=== PATIENT | male | born 1945 | race Caucasian/White ===

== ENCOUNTER 2019-04-16 01:18 | Emergency (ER) | payer OTHER ==
[~2019-04-16] VITALS: Ht 185.4 cm; Wt 74.8 kg
[2019-04-16 01:18] VITALS: BP 141/78
--- NOTE | 2019-04-16 01:28 | NUR ---
73 Y/O MALE BIBA FROM [facility]. PT PRESENTS TO ED, C/O COUGHING X1 MONTH. PT STATES COUGH IS WORSENING TODAY. STATES HAVING DIFFICULTY BREATHING, NO SOB NOTED. LUNG SOUNDS DIMINISHED ON BILAT BASES. SPO2 AT 94% ROOM AIR. PT C/O CHEST PAIN WHEN COUGHING. PT DENIES ANY N/V/D. PT UNABLE TO AMBULATE DUE TO GENERALIZED WEAKNESS. PT VSS. ERMD AWARE. WILL CONTINUE TO MONITOR.
--- NOTE | 2019-04-16 01:50 | NUR ---
NASAL FLU SWAB COLLECTED AND SENT TO LAB AT THIS TIME
--- NOTE | 2019-04-16 01:55 | NUR ---
XRAY AT BEDSIDE
--- NOTE | 2019-04-16 03:01 | NUR ---
BLOOD DRAWN AND SENT TO LAB AT THIS TIME
[2019-04-16 03:07] LABS: BASOPHILS % (AUTO) 0.5 % (0.0-2.0); EOSINOPHILS % (AUTO) 0.7 % (0.0-4.0); HEMATOCRIT 36.3 % (36-52); HEMOGLOBIN 12.2 g/dL (12.0-18.0); LYMPHOCYTES # (AUTO) 1.1 K/uL (2.0-11.5); LYMPHOCYTES % (AUTO) 16.5 % (20.5-51.1); MEAN CORPUSCULAR HEMOGLOBIN 31 pg (27-31); MEAN CORPUSCULAR HGB CONC 34 g/dL (33-37); MEAN CORPUSCULAR VOLUME 93.8 fL (80-94); MONOCYTES # (AUTO) 0.6 K/uL (0.8-1.0); MONOCYTES % (AUTO) 8.7 % (1.7-9.3); NEUTROPHILS # (AUTO) 5.1 K/uL (1.8-7.7); NEUTROPHILS % (AUTO) 73.6 % (42.2-75.2); PLATELET COUNT (AUTO) 190 K/uL (140-450); RED BLOOD CELL COUNT(AUTO) 3.88 MIL/uL (4.20-6.10); WHITE BLOOD COUNT (AUTO) 6.9 K/uL (4.8-10.8)
[2019-04-16 03:25] LABS: ANION GAP 13.1 (8-16); CARBON DIOXIDE 27.2 mmol/L (21-32); CHLORIDE 95 mmol/L (98-107); CREATININE 0.6 mg/dL (0.7-1.3); GLUCOSE 95 mg/dL (74-106); POTASSIUM 4.3 mmol/L (3.5-5.1); SODIUM SERUM 131 mmol/L (136-145); UREA NITROGEN, BLOOD 10 mg/dL (7-18)
[2019-04-16 03:30] LABS: ALBUMIN 2.6 g/dL (3.4-5.0); ASPARTATE AMINOTRANSFERASE 41 U/L (15-37); TOTAL BILIRUBIN 0.5 mg/dL (0.0-1.0)
--- NOTE | 2019-04-16 04:42 | NUR ---
Spoke with marlene valencia to give report and inform them that we would be transferring patient back to their care.
--- NOTE | 2019-04-16 06:38 | NUR ---
PT AWAKE LAYING ON BED. PT VSS. UPDATED PT REGARDING ETA FOR PICKUP. WILL CONTINUE TO MONITOR.
--- NOTE | 2019-04-16 06:49 | NUR ---
[facility] PICK[facility] ETA IS AT 1400
--- NOTE | 2019-04-16 07:23 | NUR ---
PT RESTING COMFORTABLY, GAVE PATIENT JUICE, WILL ORDER FOOD TRAY. PT USING BEDSIDE URINAL WITHOUT DIFFICULTY.
--- NOTE | 2019-04-16 07:23 | NUR ---
REPORT RECEIVED FROM HARSHAL BARRIOS FOR CHANGE OF SHIFT.
--- NOTE | 2019-04-16 07:30 | NUR ---
OFFERED TO ORDER FOOD TRAY FOR PT, PT REFUSED, CRACKERS AND JUICE ONLY.
--- NOTE | 2019-04-16 08:18 | NUR ---
PT HAD BOWEL MOVEMENT, CHANGED AND CLEANED PT OF BROWN, SOLID STOOL. PT REPOSITIONED FOR COMFORT.
--- NOTE | 2019-04-16 08:45 | NUR ---
PT GIVEN MORNING FOOD TRAY, REPOSTIONED IN BED, EATING WITHOUT DIFFICULTY.
[2019-04-16] MEDS ORDERED: IBUPROFEN 800 MG TAB PO ONE (10:45)
--- NOTE | 2019-04-16 10:45 | NUR ---
PT STATES PAIN 6/10 WITH LEFT HIP. MD ADVISED, GAVE MOTRIN PO FOR PAIN. PT REPOSITIONED FOR COMFORT. RESTING COMFORTABLY
[2019-04-16] MEDS ORDERED: MORPHINE SULFATE 2 MG/ML SYR IM ONE ×2 (13:10→13:45)
[2019-04-16 14:21] VITALS: BP 148/80
--- NOTE | 2019-04-16 14:22 | NUR ---
Patient discharged with v/s stable. Written and verbal after care instructions given and explained. Patient verbalized understanding. Amb[facility] with to [facility]. All questions addressed prior to discharge. Advised to follow up with PMD.
== END 2019-04-16 14:22 | disposition home or self-care (01) ==
LOC: MED 01:18
DX: R05 Cough (principal); R06.00 Dyspnea, unspecified
CPT/HCPCS: 36415; 71045; 80053; 83880; 84484; 85025; 85610; 85730; 87804; 93005; 96372; 99284; J2270; Q0092

== ENCOUNTER 2019-05-02 14:57 | Inpatient (IN) | payer OTHER ==
[~2019-05-02] VITALS: Ht 182.9 cm; Wt 65.8 kg
--- NOTE | 2019-05-02 14:57 | NUR ---
Patient BIBA BLS, transferred to bed 1. RN evaluating patient at bedside.
[2019-05-02 15:01] VITALS: BP 112/66
[2019-05-02] MEDS ORDERED: CALC-1030 PO (15:17)
[2019-05-02] MEDS ORDERED: ACET-5636 PO (15:17)
[2019-05-02] MEDS ORDERED: MAGN400S60 PO (15:17)
[2019-05-02] MEDS ORDERED: FERR325E14 PO (15:17)
[2019-05-02] MEDS ORDERED: ACAM333T PO (15:17)
[2019-05-02] MEDS ORDERED: TRAZ-343 PO (15:17)
[2019-05-02] MEDS ORDERED: DULO30EC PO (15:17)
[2019-05-02] MEDS ORDERED: TAMS0.4C96 PO (15:17)
[2019-05-02] MEDS ORDERED: GABA400C PO (15:17)
[2019-05-02] MEDS ORDERED: BACL10TA4 PO (15:17)
[2019-05-02] MEDS ORDERED: MSCON30 PO (15:18)
[2019-05-02 15:32] LABS: BASOPHILS % (AUTO) 0.5 % (0.0-2.0); EOSINOPHILS % (AUTO) 0.3 % (0.0-4.0); HEMATOCRIT 38.1 % (36-52); HEMOGLOBIN 12.4 g/dL (12.0-18.0); LYMPHOCYTES # (AUTO) 1.4 K/uL (2.0-11.5); LYMPHOCYTES % (AUTO) 25.7 % (20.5-51.1); MEAN CORPUSCULAR HEMOGLOBIN 31 pg (27-31); MEAN CORPUSCULAR HGB CONC 33 g/dL (33-37); MEAN CORPUSCULAR VOLUME 96.2 fL (80-94); MONOCYTES # (AUTO) 0.4 K/uL (0.8-1.0); MONOCYTES % (AUTO) 8.1 % (1.7-9.3); NEUTROPHILS # (AUTO) 3.5 K/uL (1.8-7.7); NEUTROPHILS % (AUTO) 65.4 % (42.2-75.2); PLATELET COUNT (AUTO) 149 K/uL (140-450); RED BLOOD CELL COUNT(AUTO) 3.96 MIL/uL (4.20-6.10); RED CELL DISTRIBUTION WIDTH 14.2 % (11.6-13.7); WHITE BLOOD COUNT (AUTO) 5.3 K/uL (4.8-10.8)
--- NOTE | 2019-05-02 15:45 | NUR ---
73YO M BIBA FROM REPLACED BY [facility] C/O BILATERAL LEG SWELLING X FEW DAYS. PT ALSO COMPLAINS OF 10/10 L HIP PAIN. PT IS AAOX4. SLIGHTLY TACHYCARDIC AT 104 BPM, REGULAR RHYTHM. PT PUT ON NC 2LPM, 02 SAT 100%. NO NOTED RESPIRATORY DISTRESS. PT WITH NOTED PITTING EDEMA UP TO HIS KNEES. PATIENT POSITIONED FOR COMFORT; HOB ELEVATED; BEDRAILS UP X2; BED DOWN. ER MD MADE AWARE OF PT STATUS. PMH: left femur fracture, htn, seizure, arthritis, depression, alcohol abuse, bph
[2019-05-02] MEDS ORDERED: cefTRIAXone 1,000 MG in DEXT 5% MINI-BAG PLUS 50 ML IV ONE (15:55)
[2019-05-02 16:06] LABS: ALBUMIN 2.7 g/dL (3.4-5.0); ANION GAP 12.4 (8-16); ASPARTATE AMINOTRANSFERASE 31 U/L (15-37); CARBON DIOXIDE 28.7 mmol/L (21-32); CHLORIDE 102 mmol/L (98-107); CREATININE 0.7 mg/dL (0.6-1.3); GLUCOSE 110 mg/dL (74-106); POTASSIUM 4.1 mmol/L (3.5-5.1); SODIUM SERUM 139 mmol/L (136-145); TOTAL BILIRUBIN 0.4 mg/dL (0.0-1.0); UREA NITROGEN, BLOOD 22 mg/dL (7-18)
[2019-05-02] MEDS ORDERED: cefTRIAXone 1,000 MG VIAL ONE (16:13)
[2019-05-02] MEDS ORDERED: MORPHINE SULFATE 4 MG/ML SYR IVP ONE (17:05)
[2019-05-02] MEDS ORDERED: DOCUSATE SODIUM 100 MG GELCAP PO PRN (17:15)
[2019-05-02] MEDS ORDERED: ACETAMINOPHEN 325 MG TAB PO PRN (17:15)
[2019-05-02] MEDS ORDERED: HYDROcodone/APAP 5/325 MG 1 TAB TAB PO PRN (17:15)
[2019-05-02] MEDS ORDERED: ONDANSETRON 4 MG/2 ML VIAL IM/IVP PRN (17:15)
--- NOTE | 2019-05-02 18:37 | NUR ---
Patient will be admitted to care of DR. MONZON. Admited to TELE. Will go to room 128B. Belongings list completed. Report to HARSHAL REYNOSO.
[2019-05-02 18:47] LABS: APPEARANCE,URINE CLEAR (CLEAR); BILIRUBIN,URINE 1+ (NEGATIVE); BLOOD, URINE NEGATIVE (NEGATIVE); COLOR,URINE YELLOW (YELLOW); LEUKOCYTE ESTERASE ,URINE TRACE (NEGATIVE); NITRITE, URINE POSITIVE (NEGATIVE); UGLUCOSE NEGATIVE (NEGATIVE)
--- NOTE | 2019-05-02 19:16 | NUR ---
RECEIVED BEDSIDE REPORT FROM CHARGE NURSE, RN FOR CONTINUITY OF CARE. AO X 3, FORGETFUL. PT WITH IV ON THE R AC G 20, PATENT AND INTACT. PT IS A FALL RISK, ON FALL RISK PRECAUTION. PLACED IN A LOW BED POSITION. CALL LIGHT WITHIN REACH. ORIENTED TO UNIT
[2019-05-02 19:20] LABS: MAGNESIUM 1.7 mg/dL (1.8-2.4); PHOSPHORUS 4.3 mg/dL (2.5-4.9); THYROID STIMULATING HORMONE 2.41 uIU/mL (0.34-3.74)
--- NOTE | 2019-05-02 19:30 | NUR ---
PT CLEANED AND PLACED IN FRESH GOWN; ACCDG TO ULTRASOUND FOR USD VENOUS BILATERAL, SHE WAS HERE EARLIER BUT PT STILL ON REGULAR CLOTHES, WILL COME BACK LATER
[2019-05-02 19:37] LABS: CALCIUM OXALATE CRYSTALS,UR 0-10 /HPF (None Seen); RBC,URINE 0-5 /HPF (0-5); WBC,URINE >25 (MANY) /HPF (0-5)
[2019-05-02 19:40] LABS: PROTHROMBIN TIME 9.9 secs (10.8-13.4)
[2019-05-02] MEDS: NACL 0.9% 1,000 ML IV SCH (19:49)
[2019-05-02 20:00] VITALS: BP 170/75
--- NOTE | 2019-05-02 20:00 | NUR ---
PT'S BP INCREASED, DR. OGDEN AWARE, WILL GIVE PAIN MEDS, PATIENT IS IN PAIN BILATERAL LEGS FOR CELLULITIS 01/06.
[2019-05-02] MEDS ORDERED: NON-FORMULARY ITEM (Oxycodone HCl/Acetaminophen (Percocet 10-325 mg Tablet) 1 TAB) PO PRN (20:35)
[2019-05-02] MEDS ORDERED: VANCOMYCIN PER PHARMACY MC PRN (20:40)
--- NOTE | 2019-05-02 21:23 | NUR ---
PHOTO TAKEN ON WOUNDS, INFORMED DR. OGDEN. VERBALLY ORDERED ME TO PUT IN THE ORDERS FOR WOUNDS CARRIED OUT WOUND ORDERS
[2019-05-02] MEDS: MORPHINE TAB ER 30 MG TABER PO SCH (21:53)
[2019-05-02] MEDS: BACLOFEN 10 MG TAB PO SCH (21:53)
[2019-05-02] MEDS: traZODone 50 MG TAB PO SCH (21:54)
[2019-05-02] MEDS: DULoxetine 30 MG CAPDR PO SCH (21:54)
[2019-05-02] MEDS: VANCOMYCIN 1,000 MG VIAL ONE ×2 (22:00→22:05)
[2019-05-02] MEDS ORDERED: VANCOMYCIN 1GM/DEXT 5% PREMIX 200 ML IV SCH (22:00)
--- NOTE | 2019-05-02 22:06 | NUR ---
VANCOCIN 1 GRAM STARTED MIXED W/ D5 50 ML AT 135 ML/HR. BAR CODE FOR THE VANCOMYCIN 1 GRAM D5 50 ML IS NOT WORKING.SO 1ST DOSE VANCOCIN 1000 MG I OVERIDE IT BETZAIDA MIXED IT W/ D5 50 ML Addendum: 05/02/19 at 2209 by Lavinia Higgins RN HARSHAL JASSO VERIFIED W/ ME
--- NOTE | 2019-05-02 23:22 | NUR ---
BP DECREASED NOW AFTER ADMINISTERING TO 103/54; HR 97. DR. OGDEN AWARE.
[2019-05-03] VITALS: BP 103/54
--- NOTE | 2019-05-03 | NUR ---
PT SLEEPING SOUNDLY NOW, BUT CAN BE AWAKENED BY VERBAL STIMULI Addendum: 05/04/19 at 0611 by Lavinia Higgins RN LEIGH ANN EUCEDA
--- NOTE | 2019-05-03 00:07 | NUR ---
INFORMED DYLON THAT PT NEEDS A USD VENOUS BILATERAL, AWARE. SGHE SAID SHE WILL COME AT 6:30AM
--- NOTE | 2019-05-03 02:37 | NUR ---
[facility] THOM[facility] SHAPER HAND OF [facility], SAID THAT THEY DONT HAVE RECORD, NEED TO CALL FAMILY BUT FAMILY HAS NO FAMILY. ONLY FRIEND ROMERO SWEET-[phone]
--- NOTE | 2019-05-03 02:46 | NUR ---
SCD DEVICE CANNOT BE ATTACHED DUE TO BILATERAL LE CELLULITIS W/ OPEN WOUNDS. DR. OGDEN AWARE
[2019-05-03] MEDS: NACL 0.9% 1,000 ML IV SCH ×3 (03:48→23:00)
[2019-05-03] MEDS ORDERED: HYDRAGUARD CREAM TP ONE (04:14)
[2019-05-03 06:00] VITALS: BP 112/66
[2019-05-03 06:07] LABS: BASOPHILS % (AUTO) 0.2 % (0.0-2.0); EOSINOPHILS % (AUTO) 0.2 % (0.0-4.0); HEMATOCRIT 32.1 % (36-52); HEMOGLOBIN 10.6 g/dL (12.0-18.0); LYMPHOCYTES # (AUTO) 1.1 K/uL (2.0-11.5); LYMPHOCYTES % (AUTO) 21.1 % (20.5-51.1); MEAN CORPUSCULAR HEMOGLOBIN 32 pg (27-31); MEAN CORPUSCULAR HGB CONC 33 g/dL (33-37); MEAN CORPUSCULAR VOLUME 95.9 fL (80-94); MONOCYTES # (AUTO) 0.5 K/uL (0.8-1.0); MONOCYTES % (AUTO) 8.7 % (1.7-9.3); NEUTROPHILS # (AUTO) 3.6 K/uL (1.8-7.7); NEUTROPHILS % (AUTO) 69.8 % (42.2-75.2); PLATELET COUNT (AUTO) 114 K/uL (140-450); RED BLOOD CELL COUNT(AUTO) 3.35 MIL/uL (4.20-6.10); RED CELL DISTRIBUTION WIDTH 14.5 % (11.6-13.7); WHITE BLOOD COUNT (AUTO) 5.2 K/uL (4.8-10.8)
[2019-05-03 06:17] LABS: ANION GAP 9.4 (8-16); CARBON DIOXIDE 32.4 mmol/L (21-32); CHLORIDE 107 mmol/L (98-107); CREATININE 0.6 mg/dL (0.6-1.3); GLUCOSE 101 mg/dL (74-106); POTASSIUM 3.8 mmol/L (3.5-5.1); SODIUM SERUM 145 mmol/L (136-145); UREA NITROGEN, BLOOD 15 mg/dL (7-18)
[2019-05-03 06:22] LABS: MAGNESIUM 1.6 mg/dL (1.8-2.4); PHOSPHORUS 3.5 mg/dL (2.5-4.9)
[2019-05-03 06:24] LABS: CHOL/HDL RATIO 1.8 (1-4.5)
[2019-05-03] MEDS ORDERED: PIPERACILLIN/TAZOBACTAM 3.375 GM in DEXTROSE 5% 50 ML IV SCH (07:00)
[2019-05-03] MEDS ORDERED: PIPERACILLIN/TAZOBACTAM 3.375 GM VIAL IV ONE (07:01)
--- NOTE | 2019-05-03 07:20 | NUR ---
RECEIVED REPORT FROM MILK ROUTE DELIVERER NURSE. PATIENT LYING DOWN IN BED SLEEPING, AROUSABLE BY VOICE. NO DISTRESS NOTED. DENIES ANY PAIN. AAOX3, CALM, COOPERATIVE, SKIN COLOR APPROPRIATE TO ETHNICITY, WARM TO TOUCH. HAS RIGHT PERINEUM AND SCROTAL REDNESS/DENUDED SKIN, RIGHT ANTERIOR LEG OPEN WOUND, DRESSING DRY AND INTACT. AND MULTIPLE BUE CLOSED SCABS FROM SCRATCHING SELF. IV SITE INTACT, PATENT, AND INFUSING IVF PER MD ORDERS. REVIEWED PLAN OF CARE WITH PATIENT. PATIENT VERBALIZED UNDERSTANDING. SAFETY MEASURES IN PLACE, CALL LIGHT WITHIN REACH. WILL CONTINUE TO MONITOR.
--- NOTE | 2019-05-03 07:40 | NUR ---
ASKED DR. Chino BENTLEY IF WE SHOULD COLLECT THE WOUND CULTURE WHEN WE HAVE STARTED ALREADY THE ANTIBIOTIC SINCE ADMISSION; E.G. ROCEPHIN DURING ADMISSION; VANCOMYCIN THEN ZOSYN IN THE LATRICE. THE ORDER WAS PLACED AT 0400AM BY DR. OGDEN.
--- NOTE | 2019-05-03 07:41 | NUR ---
TO FOLLOW UP THE WOUND CULTURE ORDER W/ DR. Chino BENTLEY. ENDORSED TO NEXT SHIFT FOR CONTINUITY OF CARE.
--- NOTE | 2019-05-03 07:55 | NUR ---
TO FOLLOW UP ALSO USD OF THE BILATERAL LE, VENOUS.
[2019-05-03 08:00] VITALS: BP 97/66
--- NOTE | 2019-05-03 08:57 | NUR ---
PATIENT HAS BEEN SCREENED AND CATEGORIZED HIGH NUTRITION RISK. PATIENT WILL BE SEEN WITHIN 1-2 DAYS OF ADMISSION. 2.4.[address]
[2019-05-03] MEDS: NICOTINE TRANSD SYS 14 MG/24 HR PATCH TD SCH ×2 (09:00→09:56)
--- NOTE | 2019-05-03 09:28 | NUR ---
Transformer Builder Note: Basic Screen: Yes Name: ROMERO Lozano Relationship: FRIEND Pre-Admission Living Arrangements: Other Other: [facility] Prior ADL Needs Assistance Current Home Health Name/Tel: N/A Current DME/02 Name/Tel: [facility] Current Hospice Name/Tel: N/A Current Dialysis Name/Tel: N/A Healthcare Decision Maker: Patient Advance Directive No Physician Orders for Life Sustaining Treatment Form No Discipline: Case Mgt/Social Svcs Tentative Discharge Plan/Destination: Other Other: [facility] Will require assistance post discharge: No Referred to Public Defender: No Tentative Discharge Plan Summary: Patient is a 73-year-old male admitted for PNA and bilateral cellulitis. Patient has PMHX of COPD, chronic pain of left hip, seizure disorder, depression, BPH, and tobacco use disorder. Patient was admitted from [facility]. SW contacted Natalia from [facility] [phone]. Per Natalia, patient is self-responsible for healthcare decision making and is alert/oriented at baseline. Natalia reported that patient needs assistance showering, medication, dressing, grooming, toileting, and laundry. Natalia stated that patient is non ambulatory. Tentative discharge plan is for patient to return to [facility]. No further needs identified.
[2019-05-03] MEDS: TAMSULOSIN 0.4 MG CAP PO SCH (09:55)
[2019-05-03] MEDS: BACLOFEN 10 MG TAB PO SCH ×2 (09:56→21:15)
[2019-05-03] MEDS: GABAPENTIN 300 MG CAP PO SCH ×3 (09:56→18:20)
[2019-05-03] MEDS: MORPHINE TAB ER 30 MG TABER PO SCH ×2 (09:56→21:15)
[2019-05-03] MEDS: DULoxetine 30 MG CAPDR PO SCH ×2 (09:56→21:14)
[2019-05-03] MEDS: LACTOBACILLUS RHAMNOSUS GG 1 EACH CAP PO SCH (09:56)
--- NOTE | 2019-05-03 10:09 | NUR ---
PATIENT SITTING IN BED WORKING ON HIS BREAKFAST TRAY. NO DISTRESS NOTED. PAIN WITHIN TOLERABLE. SCHEDULED MEDICATIONS DUE GIVEN. REFUSED NICOTINE PATCH. WILL CONTINUE TO MONITOR.
--- NOTE | 2019-05-03 10:56 | NUR ---
DISCHARGE PLANNING: A 73 Y/O MALE PATIENT FROM [facility], WHO CAME IN DUE TO CELLULITIS X 1 WEEK. PAST MEDICAL HISTORY INCLUDE COPD, CHRONIC PAIN OF LEFT HIP, SEIZURE DISORDER, DEPRESSION, BPH AND TOBACCO ABUSE. INITIAL DIAGNOSIS OF PNA AND BLE CELLULITIS. CURRENT LABS INCLUDE WBC 5.2, H/H 10.6/32.1, NA/K 145/3.8, BUN/CREA 15/0.6 AND MAG 1.6. ON [facility]. NO CONSULTS AT THIS TIME. DC PLAN BACK TO [facility] ONCE STABLE. Addendum: 05/03/19 at 1202 by Ingrid Mccollum CM CONTACTED GUDELIA COLE AT [facility] AND MADE AWARE OF ADMISSION. SHE STATED TO GO AHEAD AND FAX OVER FACE SHEET TO [phone]. FACE SHEET SENT. Addendum: 05/04/19 at 1030 by Ingrid Mccollum CM RECEIVED AN ORDER FOR SNF EVALUATION FOR CONTINUED ANTIBIOTICS THERAPY. CONTACTED GUDELIA COLE OF [facility] AT [phone] REGARDING DC PLAN. I INFORMED HER THAT I FAXED THE ORDER AND CLINICALS TO [phone]. AND I ALSO INFORMED HER THAT I SENT INQUIRIES TO CONTRACTED SNF'S [facility] AND [facility]. SHE STATED JUST TO CALL HER UP IF I HAVE AN ACCEPTING FACILITY SO SHE CAN PROVIDE TRANSPORT AND SNF AUTH. GUDELIA TO FOLLOW UP. Addendum: 05/04/19 at 1527 by Ingrid Mccollum CM PER [facility], NO MALE BEDS AVAILABLE AT THIS TIME. Addendum: 05/04/19 at 1623 by Ingrid Mccollum CM IMM AND CHOICE LETTERS PROVIDED TO THE PATIENT. HE SAID TO GIVE HIM TIME TO READ BEFORE SIGNING IT. LEFT THE FORM WITH HIM. WILL FOLLOW UP. Addendum: 05/05/19 at 1458 by Ingrid Mccollum PER [facility], THEY ARE ABLE TO ACCEPT THE PATIENT IF READY TO BE DC. DR. SLOAN MADE AWARE. Addendum: 05/05/19 at 1548 by Ingrid Mccollum CM CONTACTED GUDELIA CARLSON AT [phone] TO INFORM HER THAT [facility] IS ABLE TO ACCEPT THE PATIENT. NO ANSWER, VOICE PROMPT STATED NO VOICEMAIL SET. WILL FOLLOW UP. Addendum: 05/06/19 at 1545 by Ingrid Mccollum CM CONTACTED GUDELIA COLE AT [phone], INFORMED HER THAT [facility] IS ABLE TO ACCEPT THE PATIENT. SHE PROVIDED ME WITH SNF AND TRANSPORT AUTH [id number]. PROVIDED THE AUTH TO CHEVY OF [facility]. PER CHEVY PATIENT CAN GO TO ROOM [facility] UNDER DR. ABREU. DR. BELLO MADE AWARE. WILL CALL TRANSPORT SET UP WITH TIFFANIE OF [facility] [phone]. DR. SLOAN AND CHARGE NURSE ALESSIA MADE AWARE. Addendum: 05/07/19 at 1115 by Halie Menjivar DC PLANNING: CALLED [facility] SPOKE WITH ESTRELLA CAPUTO ACCEPTED PT, CAN GO TO ROOM [facility] # TO GIVE REPORT [phone] ARRANGED TRANSPORT WITH [facility] QUALITY ASSURANCE AUDITOR TIME BETWEEN 5-6 PM NOTIFIED PIPER CAPUTO. Addendum: 05/07/19 at 1610 by Halie Menjivar CM DC PLANNING IM LETTER GIVEN TO PATIENT UNABLE TO SIGNED DUE TO TREMORS ON HANDS NO FAMILY TO DISCUSS THE IM LETTER HOWEVER PT IS ALERT AND ORIENTED X 3 EXPLAINED THE MEDICARE RIGHTS AND CHOICE OF VENDOR AND PT IS AGREED TO GO TO [facility] FOR IV ANTIBIOTICS . CALLED CORNELIUS HASTINGS SPOKE WITH BEN NOTIFIED HER THAT PT IS GOING TO [facility] FOR IV ABX. Addendum: 05/08/19 at 1523 by Halie Menjivar CM DC PLANNING CALLED [facility] SPOKE WITH [facility] STATED THEY ARE ASKING THE PATIENT TO HAVE A BRIZUELA CATH TO BE INSERTED TO BE ABLE TO PLACE HIM WITH SOMEONE ELSE BUT DIDN'T GIVE THE ORDER . I EXPLAINED THE WE CAN NOT INSERT BRIZUELA CATH FOR CONVENIENCE THERE IS A STANDARD TO PUT BRIZUELA. PER OCTAVIA THEY DON'T HAVE ANY ISO BED AND TO LOOK FOR ANOTHER SNF. FAXED TO MOST OF THE CONTRACTED FACILITY [facility], [facility] , [facility] , SPOKE WITH DENI AT [facility] AND [facility] THEY ARE REVIEWING THE CASE AND WILL CALL BACK Addendum: 05/08/19 at 1601 by Halie Menjivar CM DC PLANNING: PER DR CHIU PT NEEDS TO BE IN ISOLATION AND THE IV ABX IS FOR ONE WEEK. JOSE FROM [facility] VISITED PATIENT WILL ACCEPT PATIENT BUT THERE IS NO ISO BED AND WILL CALL BACK WHEN BED AVAILABLE. SPOKE WITH DENI AT [facility] NO ISO BED CM TO FOLLOW Addendum: 05/09/19 at 1013 by Ingrid Mccollum CM SARAH CARLSON MAKING HER AWARE THAT THE PATIENT IS STILL HERE 2/2 ISOLATION AND [facility] DID NOT HAVE A BED DURING THE WEEKEND. I ALSO INFORMED HER THAT [facility] IS ABLE TO ACCEPT THE PATIENT. SHE STATED SHE WILL CALL ME BACK, SHE HAVE TO DISCUSS THE CASE WITH HER HELMET HAT BRIM CUTTER. GUDELIA WILL FOLLOW UP. Addendum: 05/09/19 at 1021 by Ingrid Mccollum CM RECEIVED A CALL FROM [facility] ADMISSIONS OF [facility] [phone], STATING THAT THEY ARE ABLE TO ACCEPT THE PATIENT PENDING AUTH. SHE PROVIDED ME WITH ROOM NUMBER [id number] UNDER DR. HOLDEN. GUDELIA WILL FOLLOW UP. Addendum: 05/09/19 at 1056 by Ingrid Mccollum CM RECEIVED A CALL FROM GUDELIA CARLSON REGARDING AUTH FOR SNF AND TRANSPORT. SHE STATED I CAN USE THE ONE SHE PROVIDED ME LAST THURSDAY. MARILUZ OF [facility] MADE AWARE. CONTACTED [facility] AT [phone], PER SAM QUALITY ASSURANCE AUDITOR WILL BE AT 1500. [facility], PRIMARY HARSHAL ESPARZA AND DR. SLOAN MADE AWARE. Addendum: 05/09/19 at 1100 by Ingrid Mccollum KALI BAILEY POULTICE MACHINE OPERATOR AT [facility] [phone] MADE AWARE. Addendum: 05/09/19 at 1316 by Halie Menjivar DC PLANNING: IM LETTER SIGNED BY THE PATIENT .PT ALERT AND ORIENTED X4 ABLE TO MAKE NEEDS KNOWN, AFTER READING AND DISCUSSING ALL THE CONCERNS AND ISSUES, SUCH GOING BACK TO [facility] THE ASSISTED LIVING, AND MEDICARE RIGHTS IF HE DOESN'T AGREE HE CAN APPEAL THE DISCHARGE, PT VERBALIZED UNDERSTANDING, AGREED TO GO TO [facility] FOR IV ANTIBIOTICS AND SIGNED THE IM LETTER.
[2019-05-03 12:00] VITALS: BP 111/66
[2019-05-03] MEDS ORDERED: MAG SULF 2000 MG/WATER PREMIX 50 ML IV SCH (12:00)
[2019-05-03] MEDS: VANCOMYCIN 1,000 MG in DEXTROSE 5% 250 ML IV SCH ×2 (12:14→22:54)
[2019-05-03] MEDS: MORPHINE SULFATE 2 MG/ML SYR IVP PRN ×2 (12:35→19:01)
--- NOTE | 2019-05-03 12:40 | NUR ---
PATIENT SITTING IN BED WITH COMPLAINTS OF PAIN ON LOWER EXTREMITIES, MORPHINE GIVEN AT THIS TIME. OTHER SCHEDULED MEDICATIONS DUE GIVEN. WILL CONTINUE TO MONITOR.
[2019-05-03] MEDS: Z-GUARD PASTE TP SCH (13:06)
[2019-05-03] MEDS: HYDRAGUARD CREAM TP SCH (13:06)
[2019-05-03] MEDS ORDERED: FUROSEMIDE 40 MG/4 ML VIAL IVP SCH (14:00)
[2019-05-03] MEDS: PIPERACILLIN/TAZOBACTAM 3.375 GM in DEXTROSE 5% 50 ML IV SCH ×2 (14:36→21:14)
--- NOTE | 2019-05-03 15:00 | NUR ---
ASSISTED PATIENT IN REPOSITIONING. WILL CONTINUE TO MONITOR.
[2019-05-03 16:00] VITALS: BP 111/65
--- NOTE | 2019-05-03 16:01 | NUR ---
05/03/19 RD INITIAL ASSESSMENT COMPLETED PLEASE REFER TO NUTRITION ASSESSMENT UNDER CARE ACTIVITY FOR ESTIMATED NUTRITIONAL NEEDS. 1. CONTINUE REGULAR, HIGH PROTEIN DIET TOLERATED 2. PT TO RECEIVE ADEQUATE KCALS/PROTEIN TO MEET INCREASED NEEDS. 3. RD TO FOLLOW-UP 2-3 DAYS, HIGH RISK REVIEWED BY KEIRA MACKAY RD
--- NOTE | 2019-05-03 17:52 | NUR ---
HARSHAL Miller reminded to follow up flu and PNA shot. He said okay.
--- NOTE | 2019-05-03 18:20 | NUR ---
PATIENT LYING DOWN IN BED SLEEPING, AROUSABLE BY VOICE. NO DISTRESS NOTED. DENIES ANY PAIN. SCHEDULED MEDICATIONS DUE GIVEN. WILL CONTINUE TO MONITOR.
--- NOTE | 2019-05-03 19:26 | NUR ---
GAVE REPORT TO STATION CLEANING PORTER NURSE FOR CONTINUITY OF CARE. PATIENT IN STABLE CONDITION.
--- NOTE | 2019-05-03 19:27 | NUR ---
RECEIVED REPORT FROM AM SHIFT HARSHAL SMITH. PT AO X 3, WITH PERIODS OF FORGETFULNESS, AMBULATORY. STILL PENDING POST LEG THIGH WOUND CULTURE, AND SPUTUM CULTURE. PT NOT COUGHING. NO RESPIRATORY DISTRESS. PLACED ON LOW BED, W/ DRESSINGS IN PLACE ON POST LEG LEFT, AND WITH WOUND TX ON WOUND AREAS. W/ IV ON THE RAC G 20 STILL INTACT WITH NS AT 100ML/HR. PLACED ON LOW BED. CALL LIGHT WITHIN REACH.
[2019-05-03 20:00] VITALS: BP 110/64
[2019-05-03] MEDS: traZODone 50 MG TAB PO SCH (21:14)
--- NOTE | 2019-05-03 21:57 | NUR ---
PT TURNED AND REPOSITIONED PATIENT
--- NOTE | 2019-05-03 23:45 | NUR ---
PT SLEEPING COMFORTABLY NO RESPIRATORY DISTRESS NO COMPLAINTS AT THIS TIME
[2019-05-04] VITALS: BP 133/80
--- NOTE | 2019-05-04 | NUR ---
PT SLEEPING SOUNDLY NOW, BUT CAN BE AWAKENED BY VERBAL STIMULI
--- NOTE | 2019-05-04 01:00 | NUR ---
PATIENT CLEANED AND TURNED; AND PATIENT WOUND CARE DONE; PT TOLERATED PROCEDURE
[2019-05-04] MEDS: HYDRAGUARD CREAM TP SCH ×2 (02:10→13:17)
[2019-05-04] MEDS: Z-GUARD PASTE TP SCH ×2 (02:11→13:18)
--- NOTE | 2019-05-04 02:30 | NUR ---
PT SLEEPING FOR NOW, CAN BE EASILY AROUSED, NO COMPLAINTS NO RESPIRATORY DISTRESS, FIXED HIS O2 NASAL CANNULA
[2019-05-04] MEDS: MORPHINE SULFATE 2 MG/ML SYR IVP PRN ×3 (04:07→20:42)
[2019-05-04] MEDS: PIPERACILLIN/TAZOBACTAM 3.375 GM in DEXTROSE 5% 50 ML IV SCH ×3 (04:09→20:44)
--- NOTE | 2019-05-04 04:10 | NUR ---
PT CLEANED AND TURNED HIM, PT WAS GIVEN PAIN MEDS BEFORE TURNING.
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
--- NOTE | 2019-05-04 05:15 | NUR ---
RAIN, LAB WAS IN THE ROOM. NO BLOOD DRAW WAS DONE YET. LAB EXPLAINED THE PROCEDURE. PT UNDERSTOOD THE RISKS AND BENEFITS AND ALLOWED A BLOOD DRAW
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
[2019-05-04 06:00] VITALS: BP 147/88
[2019-05-04 06:50] LABS: ANION GAP 10.5 (8-16); CARBON DIOXIDE 35.4 mmol/L (21-32); CHLORIDE 102 mmol/L (98-107); CREATININE 0.6 mg/dL (0.6-1.3); GLUCOSE 98 mg/dL (74-106); POTASSIUM 3.9 mmol/L (3.5-5.1); SODIUM SERUM 144 mmol/L (136-145); UREA NITROGEN, BLOOD 10 mg/dL (7-18)
[2019-05-04 06:54] LABS: MAGNESIUM 1.6 mg/dL (1.8-2.4); PHOSPHORUS 3.9 mg/dL (2.5-4.9)
--- NOTE | 2019-05-04 07:44 | NUR ---
RECEIVED REPORT FROM ACETONE BUTTON PASTER RN FOR CONTINUITY OF CARE. PT IS AAOX3, WITH PERIODS OF FORGETFULNESS, AND CONFUSION. PT IS NOT AMBULATORY WITH CONTRACTURE TO LEFT LEG. STILL PENDING POST LEG THIGH WOUND CULTURE, AND SPUTUM CULTURE. PT NOT COUGHING. PT ON 2L O3 VIA NC. NO RESPIRATORY DISTRESS NOTED. PT WITH DRESSINGS IN PLACE ON POSTERIOR LEFT THIGH AND ON OTHER WOUND AREAS. PT HAS IV ON THE R AC 20G PATENT AND INTACT WITH NS AT 60ML/HR. EXPLAINED POC TO PT AND PT VERBALIZED UNDERSTANDING BUT WAS A LITTLE DEFENSIVE. ALL SAFETY MEASURES IN PLACE. CALL LIGHT WITHIN REACH, BED IN LOW POSITION. WILL ROUND FREQUENTLY ON PT.
[2019-05-04] MEDS: GABAPENTIN 300 MG CAP PO SCH ×3 (08:39→17:00)
[2019-05-04] MEDS: LACTOBACILLUS RHAMNOSUS GG 1 EACH CAP PO SCH (08:39)
[2019-05-04] MEDS: BACLOFEN 10 MG TAB PO SCH ×2 (08:39→20:48)
[2019-05-04] MEDS: MORPHINE TAB ER 30 MG TABER PO SCH ×2 (08:40→21:00)
[2019-05-04] MEDS: DULoxetine 30 MG CAPDR PO SCH ×2 (08:40→20:48)
[2019-05-04] MEDS: TAMSULOSIN 0.4 MG CAP PO SCH (08:40)
[2019-05-04] MEDS: NICOTINE TRANSD SYS 14 MG/24 HR PATCH TD SCH (09:00)
[2019-05-04 09:03] LABS: BASOPHILS % (AUTO) 0.9 % (0.0-2.0); EOSINOPHILS % (AUTO) 0.3 % (0.0-4.0); HEMATOCRIT 35.2 % (36-52); HEMOGLOBIN 11.6 g/dL (12.0-18.0); LYMPHOCYTES # (AUTO) 0.9 K/uL (2.0-11.5); LYMPHOCYTES % (AUTO) 25.9 % (20.5-51.1); MEAN CORPUSCULAR HEMOGLOBIN 32 pg (27-31); MEAN CORPUSCULAR HGB CONC 33 g/dL (33-37); MONOCYTES # (AUTO) 0.2 K/uL (0.8-1.0); MONOCYTES % (AUTO) 7.2 % (1.7-9.3); NEUTROPHILS # (AUTO) 2.2 K/uL (1.8-7.7); NEUTROPHILS % (AUTO) 65.7 % (42.2-75.2); PLATELET COUNT (AUTO) 115 K/uL (140-450); RED BLOOD CELL COUNT(AUTO) 3.63 MIL/uL (4.20-6.10); RED CELL DISTRIBUTION WIDTH 14.2 % (11.6-13.7); WHITE BLOOD COUNT (AUTO) 3.4 K/uL (4.8-10.8)
--- NOTE | 2019-05-04 09:15 | NUR ---
ADMINISTERED MORNING MEDS TO PT. PT TOLERATED WELL. PT REFUSING HEPARIN AND NICOTINE PATCH. ALL OTHER NEEDS MET. WILL CONTINUE TO ROUND FREQUENTLY ON PT. BED IN LOW POSITION, CALL LIGHT WITHIN REACH.
[2019-05-04] MEDS ORDERED: MAG SULF 2000 MG/WATER PREMIX 100 ML IV SCH (10:00)
[2019-05-04 10:53] VITALS: BP 124/84
[2019-05-04] MEDS: MUPIROCIN CA NASAL 2% 1GM TUBE NS SCH (11:38)
[2019-05-04] MEDS: CHLORHEXADINE GLUC 2% CLOTH TP SCH (11:38)
--- NOTE | 2019-05-04 11:54 | NUR ---
PT SITTING UP IN BED EATING LUNCH. ALL NEEDS MET. WILL CONTINUE TO ROUND FREQUENTLY ON PT. BED IN LOW POSITION, CALL LIGHT WITHIN REACH.
[2019-05-04 12:00] VITALS: BP 101/65
[2019-05-04] MEDS: VANCOMYCIN 1,250 MG in DEXTROSE 5% 250 ML IV SCH ×2 (13:17→23:17)
--- NOTE | 2019-05-04 13:39 | NUR ---
PT RESTING IN BED. ALL NEEDS MET.
--- NOTE | 2019-05-04 14:55 | NUR ---
WOUND CARE EVALUATION NOTE: REASON FOR EVALUATION: MULTIPLE WOUNDS SKIN ASSESSMENT DONE WITH THIS 73 Y/O MALE PT ADMITTED FROM SNF TO [facility] WITH INITIAL DX OF BLE CELLULITIS PT IS AWAKE. SKIN IS WARM AND DRY, MULTIPLE SCABS. BLE NO HAIR GROWTH, LEFT HIP OLD HEALED SCAR, LEFT LE +1 EDEMA WITH LEFT FOOT DEFORMITY AND HEEL THIN CALLUS. BILATERAL DORSAL PEDAL PULSES PRESENT, THICKEN FUNGAL NAILS OBSERVED. PLAN OF CARE DISCUSSED WITH PRIMARY RN AND PT. PT. VERBALIZING UNDERSTANDING. 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 -LEFT LE +1 EDEMA WITH LEFT FOOT DEFORMITY AND HEEL THIN CALLUS. SKIN WITH ERYTHEMA, NORMAL TEMP. AND INTACT RECOMMENDATIONS: -APPLY HYDRA-GUARD TO UPPER EXTREMITIES, DORSAL FEEL TO TOES BID AND MATT -CLEANSE RIGHT LE WITH NS AND GAUZE, PAT DRY, PACK WITH XEROFORM DRESSING, AND WRAP WITH TETE 3XWK M-W-F AND PRN WITH SOILING. -CLEANSE SCROTAL AND PERINEUM AREAS WITH MILD SOAP AND WATER, PAT DRY, APPLY Z-GUARD QD AND PRN IF SOILING -CLEANSE LEFT MEDIAL THIGH WITH MILD SOAP AND WATER, RINSE WITH NS, PAT DRY, APPLY Z-GUARD AND COVER WITH ISLAND DRESSING QD AND PRN IF SOILING -OFFLOAD BILATERAL HEELS BY PLACING PILLOWS UNDER CALVES UNLESS OTHERWISE CONTRAINDICATED -PRESSURE REDISTRIBUTION SURFACE THERAPY -TURN AND REPOSITION Q2H, OFFLOAD SACRALCOCCYX BY TURNING RIGHT AND LEFT -CONTINUE TO FOLLOW RD RECOMMENDATIONS ALL ABOVE RECOMMENDATIONS DISCUSSED WITH PRIMARY RN WILL FOLLOW UP PT Q7-10 DAYS. PLEASE CONTACT WOUND CARE NURSE FOR ANY QUESTION AND CHANGE OF WOUND CONDITION.
--- NOTE | 2019-05-04 15:09 | NUR ---
WOUND CARE DONE WITH WOUND CARE NURSE DOMINGO. PT TOLERATED WELL. PT REQUESTING MORPHINE FOR 7/10 LEG PAIN. WILL MEDICATE PT.
[2019-05-04 16:00] VITALS: BP 112/63
--- NOTE | 2019-05-04 17:42 | NUR ---
PT RESTING EATING DINNER. ALL NEEDS MET.
--- NOTE | 2019-05-04 19:39 | NUR ---
ENDORSED PT TO SLUICE TENDER FOR CONTINUITY OF CARE. PT INS TABLE CONDITION AT THIS TIME.
--- NOTE | 2019-05-04 19:40 | NUR ---
RECEIVED BEDSIDE REPORT FROM DAY RN FOR CONTINUITY OF CARE. PT IS AAOX3, WITH PERIODS OF FORGETFULNESS, AND CONFUSION. PT IS NOT AMBULATORY WITH CONTRACTURE TO LEFT LEG. STILL PENDING POST LEG THIGH WOUND CULTURE, AND SPUTUM CULTURE. PT DENIES COUGH. PT ON 2L O2 VIA NC. NO RESPIRATORY DISTRESS NOTED. DECREASE LUNG SOUNDS. PT WITH DRESSINGS IN PLACE ON POSTERIOR LEFT THIGH AND R AQUINO WITH DELMER WRAP. PT HAS IV ON THE R AC 20G PATENT AND INTACT WITH NS AT 60ML/HR. URINAL WITHIN REACH. EXPLAINED POC TO PT AND PT VERBALIZED UNDERSTANDING. ON CONTACT ISOLATION FOR ACTIVE MRSA OF NARES. ALL SAFETY MEASURES IN PLACE. CALL LIGHT WITHIN REACH, BED IN LOW POSITION. WILL ROUND FREQUENTLY.
[2019-05-04 20:00] VITALS: BP 99/65
--- NOTE | 2019-05-04 20:44 | NUR ---
NGOC MEDICATIONS GIVEN. IV MORPHINE GIVEN FOR GEN 9/10 PAIN. PT TOLERATED WELL. CALL LIGHT IS WITHIN REACH.
[2019-05-04] MEDS: traZODone 50 MG TAB PO SCH (20:48)
--- NOTE | 2019-05-04 22:00 | NUR ---
PATIENT IS LAYING COMFORTABLY IN BED WATCHING TV. NO S/S OF DISTRESS. SAFETY MEASURES ARE IN PLACE. CALL LIGHT IS WITHIN REACH. WILL CONTINUE TO MONITOR.
[2019-05-04] MEDS: NACL 0.9% 1,000 ML IV SCH (23:17)
--- NOTE | 2019-05-04 23:17 | NUR ---
NEW IVF BAG STARTED. VANCO NOW INFUSING PER ORDERS. PT IS SLEEPING COMFORTABLY IN BED CHEST RISE AND FALL. NO S/S OF DISTRESS. CALL LIGHT IS WITHIN REACH.
[2019-05-05] VITALS: BP 145/95
--- NOTE | 2019-05-05 | NUR ---
VITAL SIGNS ARE STABLE. NO S/S OF DISTRESS. CALL LIGHT IS WITHIN REACH. WILL CONTINUE TO MONITOR.
[2019-05-05] MEDS: MORPHINE SULFATE 2 MG/ML SYR IVP PRN (00:57)
--- NOTE | 2019-05-05 00:57 | NUR ---
PT YELLING. WALKED TO ROOM PT WAS HOLDING HIS IV. IV CATH INTACT. R ARM AT OLD IV SITE NOTED WITH MINIMAL SWELLING. PT WAS AGITATED REGARDING HIS ARM, EDUCATED IV GOT INFILTRATED I WILL MONITOR THE SWELLING SHOULD GO DOWN. PT VERBALIZED UNDERSTANDING. ARM RAISED ON PILLOW. NEW IV STARTED ON ANNETTE 22G ON FIRST ATTEMPT. PT TOLERATED WELL. ADMINISTERED IV MORPHINE FOR LEG PAIN 12/07. CALL LIGHT IS WITHIN REACH. WILL CONTINUE TO MONITOR.
[2019-05-05] MEDS: HYDRAGUARD CREAM TP SCH ×2 (01:05→12:30)
[2019-05-05] MEDS: Z-GUARD PASTE TP SCH ×2 (01:05→12:30)
--- NOTE | 2019-05-05 02:14 | NUR ---
PATIENT IS RESTING COMFORTABLY IN BED. NO S/S OF DISTRESS. CALL LIGHT IS WITHIN REACH.
[2019-05-05 04:00] VITALS: BP 138/63
--- NOTE | 2019-05-05 04:00 | NUR ---
VITAL SIGNS ARE WITHIN NORMAL LIMITS. ALL SAFETY MEASURES ARE IN PLACE. CALL LIGHT IS WITHIN REACH. WILL CONTINUE TO MONITOR.
[2019-05-05] MEDS: PIPERACILLIN/TAZOBACTAM 3.375 GM in DEXTROSE 5% 50 ML IV SCH ×3 (04:49→20:11)
--- NOTE | 2019-05-05 06:53 | NUR ---
PT IS SLEEPING COMFORTABLY IN BED. CHEST RISE AND FALL NOTED. PT IS STABLE. CALL LIGHT IS WITHIN REACH. WILL ENDORSE TO DAY RN.
[2019-05-05 07:00] LABS: BASOPHILS % (AUTO) 0.2 % (0.0-2.0); EOSINOPHILS % (AUTO) 0.3 % (0.0-4.0); HEMOGLOBIN 11.8 g/dL (12.0-18.0); LYMPHOCYTES # (AUTO) 0.8 K/uL (2.0-11.5); LYMPHOCYTES % (AUTO) 26.1 % (20.5-51.1); MEAN CORPUSCULAR HEMOGLOBIN 31 pg (27-31); MEAN CORPUSCULAR HGB CONC 33 g/dL (33-37); MONOCYTES # (AUTO) 0.2 K/uL (0.8-1.0); MONOCYTES % (AUTO) 7.3 % (1.7-9.3); NEUTROPHILS % (AUTO) 66.1 % (42.2-75.2); PLATELET COUNT (AUTO) 112 K/uL (140-450); RED BLOOD CELL COUNT(AUTO) 3.75 MIL/uL (4.20-6.10); RED CELL DISTRIBUTION WIDTH 14.3 % (11.6-13.7); WHITE BLOOD COUNT (AUTO) 3.1 K/uL (4.8-10.8)
[2019-05-05 07:32] LABS: ANION GAP 6.9 (8-16); CARBON DIOXIDE 34.9 mmol/L (21-32); CHLORIDE 103 mmol/L (98-107); CREATININE 0.6 mg/dL (0.6-1.3); GLUCOSE 97 mg/dL (74-106); POTASSIUM 3.8 mmol/L (3.5-5.1); SODIUM SERUM 141 mmol/L (136-145); UREA NITROGEN, BLOOD 9 mg/dL (7-18)
[2019-05-05 07:38] LABS: MAGNESIUM 1.6 mg/dL (1.8-2.4); PHOSPHORUS 3.1 mg/dL (2.5-4.9)
--- NOTE | 2019-05-05 07:45 | NUR ---
RECEIVED REPORT FROM [employer] FOR CONTINUITY OF CARE FROM YESTERDAY. ALL NEEDS MET. PT IN STABLE CONDITION AT THIS TIME.
[2019-05-05 08:00] VITALS: BP 147/92
[2019-05-05] MEDS ORDERED: ONDANSETRON 4 MG/2 ML VIAL IM/IVP PRN (08:30)
[2019-05-05] MEDS: NICOTINE TRANSD SYS 14 MG/24 HR PATCH TD SCH (09:00)
[2019-05-05] MEDS ORDERED: ONDANSETRON 4 MG/2 ML VIAL IVP SCH (09:00)
[2019-05-05] MEDS: BACLOFEN 10 MG TAB PO SCH ×2 (09:11→20:11)
[2019-05-05] MEDS: MORPHINE TAB ER 30 MG TABER PO SCH ×2 (09:11→20:10)
[2019-05-05] MEDS: DULoxetine 30 MG CAPDR PO SCH ×2 (09:11→20:10)
[2019-05-05] MEDS: GABAPENTIN 300 MG CAP PO SCH ×3 (09:12→17:39)
[2019-05-05] MEDS: LACTOBACILLUS RHAMNOSUS GG 1 EACH CAP PO SCH (09:12)
[2019-05-05] MEDS: TAMSULOSIN 0.4 MG CAP PO SCH (09:12)
--- NOTE | 2019-05-05 09:24 | NUR ---
ADMINISTERED MORNING MEDS TO PT. PT TOLERATED WELL. ALL NEEDS MET
[2019-05-05] MEDS: CHLORHEXADINE GLUC 2% CLOTH TP SCH (11:12)
[2019-05-05] MEDS: MUPIROCIN CA NASAL 2% 1GM TUBE NS SCH (11:14)
[2019-05-05] MEDS ORDERED: MAGNESIUM OXIDE 400 MG TAB PO SCH (11:30)
--- NOTE | 2019-05-05 11:44 | NUR ---
PT RESTING IN BED. ALL NEEDS MET.
[2019-05-05 12:00] VITALS: BP 132/84
[2019-05-05] MEDS: VANCOMYCIN 1,250 MG in DEXTROSE 5% 250 ML IV SCH (12:29)
--- NOTE | 2019-05-05 13:46 | NUR ---
PT ASLEEP. ALL NEEDS MET. WILL CONTINUE TO ROUND ON PT.
--- NOTE | 2019-05-05 15:25 | NUR ---
PT RESTING IN BED WATCHING TV. ALL NEEDS MET. WILL CONTINUE TO ROUND ON PT.
[2019-05-05] MEDS: NACL 0.9% 1,000 ML IV SCH (15:48)
[2019-05-05 16:00] VITALS: BP 125/74
[2019-05-05] MEDS: MAG SULF 2000 MG/WATER PREMIX 100 ML IV SCH ×2 (16:00→21:13)
--- NOTE | 2019-05-05 17:41 | NUR ---
PT EATING DINNER IN BED. ALL NEEDS MET.
--- NOTE | 2019-05-05 19:24 | NUR ---
RECEIVED BEDSIDE REPORT FROM DAY RN FOR CONTINUITY OF CARE. PT IS AAOX3, WITH PERIODS OF FORGETFULNESS, AND CONFUSION. PT IS NOT AMBULATORY WITH CONTRACTURE TO LEFT LEG. STILL PENDING POST LEG THIGH WOUND CULTURE, AND SPUTUM CULTURE. PT DENIES COUGH. PT ON 2L O2 VIA NC. NO RESPIRATORY DISTRESS NOTED. DECREASE LUNG SOUNDS. PT WITH DRESSINGS IN PLACE ON POSTERIOR LEFT THIGH AND R AQUINO WITH DELMER WRAP. C/D/I. PT HAS IV ON ANNETTE 22G PATENT AND INTACT WITH MAG RIDER CURRENTLY INFUSING. URINAL WITHIN REACH. EXPLAINED POC TO PT AND PT VERBALIZED UNDERSTANDING. ON CONTACT ISOLATION FOR ACTIVE MRSA OF NARES. ALL SAFETY MEASURES IN PLACE. CALL LIGHT WITHIN REACH, BED IN LOW POSITION. WILL ROUND FREQUENTLY.
--- NOTE | 2019-05-05 19:46 | NUR ---
ENDORSED PT TO SHOEMAKING CUTTER RN FOR CONTINUITY OF CARE. PT IN STABLE CONDITION AT THIS TIME.
[2019-05-05 20:00] VITALS: BP 112/60
[2019-05-05] MEDS: traZODone 50 MG TAB PO SCH (20:11)
--- NOTE | 2019-05-05 20:11 | NUR ---
VSS. NGOC MEDICATIONS GIVEN PER ORDER. PT TOLERATED WELL. CALL LIGHT IS WITHIN REACH. WILL CONTINUE TO MONITOR
[2019-05-05] MEDS ORDERED: MAG SULF 2000 MG/WATER PREMIX 50 ML IV ONE (21:08)
--- NOTE | 2019-05-05 21:13 | NUR ---
SECOND BAG OF MAG RIDER IS NOW INFUSING PER ORDERS FOR MG LVL 1.6 SAFETY [address] ARE IN PLACE. WILL CONTINUE TO MONITOR.
--- NOTE | 2019-05-05 22:40 | NUR ---
PATIENT IS SLEEPING COMFORTABLY IN BED WITH EYES CLOSED. CHEST RISE AND FALL. SAFETY MEASURES ARE IN PLACE. CALL LIGHT IS WITHIN REACH.
[2019-05-06] MEDS: VANCOMYCIN 1,250 MG in DEXTROSE 5% 250 ML IV SCH (00:22)
[2019-05-06 00:30] VITALS: BP 84/50
--- NOTE | 2019-05-06 00:32 | NUR ---
PAGED DR OGDEN FOR LOW B/P 84/50 HR 84 RR 16 SAT 97% ON 2L. PT IS AROUSABLE TO LIGHT SHAKING OF SHOULDER. PT STATES, "YES I FEEL FINE, I JUST NEED SLEEP." PER GIVE 1L BOLUS. BOLUS NOW INFUSING. WILL RECHECK B/P PT REMAINS ON TELE MONITOR.
[2019-05-06] MEDS: HYDRAGUARD CREAM TP SCH ×2 (00:34→13:33)
[2019-05-06] MEDS: Z-GUARD PASTE TP SCH ×2 (00:35→13:34)
[2019-05-06 01:15] VITALS: BP 100/55
--- NOTE | 2019-05-06 01:15 | NUR ---
RECHECK B/P AFTER 1L BOLUS. B/P 100/55 HR 94. NO S/S OF DISTRESS. SAFETY MEASURES ARE IN PLACE. CALL LIGHT IS WITHIN REACH.
--- NOTE | 2019-05-06 02:15 | NUR ---
PATIENT IS SLEEPING COMFORTABLY IN BED WITH EYES CLOSED. CHEST RISE AND FALL NOTED. CALL LIGHT IS WITHIN REACH. WILL CONTINUE TO MONITOR.
[2019-05-06 04:00] VITALS: BP 121/69
--- NOTE | 2019-05-06 04:00 | NUR ---
VSS: 121/69 HR 88 18 97% 97.2 DENIES PAIN. ALL SAFETY MEASURES ARE IN PLACE. CALL LIGHT IS WITHIN REACH. WILL CONTINUE TO MONITOR.
[2019-05-06] MEDS: PIPERACILLIN/TAZOBACTAM 3.375 GM in DEXTROSE 5% 50 ML IV SCH ×3 (04:13→21:24)
[2019-05-06] MEDS ORDERED: NACL 0.9% 1,000 ML IV ONE (05:15)
[2019-05-06 06:25] LABS: BASOPHILS % (AUTO) 0.3 % (0.0-2.0); EOSINOPHILS % (AUTO) 0.4 % (0.0-4.0); HEMATOCRIT 37.7 % (36-52); HEMOGLOBIN 12.3 g/dL (12.0-18.0); LYMPHOCYTES # (AUTO) 0.6 K/uL (2.0-11.5); LYMPHOCYTES % (AUTO) 19.6 % (20.5-51.1); MEAN CORPUSCULAR HEMOGLOBIN 32 pg (27-31); MEAN CORPUSCULAR HGB CONC 33 g/dL (33-37); MEAN CORPUSCULAR VOLUME 96.9 fL (80-94); MONOCYTES # (AUTO) 0.4 K/uL (0.8-1.0); MONOCYTES % (AUTO) 12.6 % (1.7-9.3); NEUTROPHILS # (AUTO) 2.2 K/uL (1.8-7.7); NEUTROPHILS % (AUTO) 67.1 % (42.2-75.2); PLATELET COUNT (AUTO) 113 K/uL (140-450); RED BLOOD CELL COUNT(AUTO) 3.89 MIL/uL (4.20-6.10); RED CELL DISTRIBUTION WIDTH 14.8 % (11.6-13.7); WHITE BLOOD COUNT (AUTO) 3.3 K/uL (4.8-10.8)
[2019-05-06 06:32] LABS: ANION GAP 4.6 (8-16); CARBON DIOXIDE 36.5 mmol/L (21-32); CHLORIDE 104 mmol/L (98-107); GLUCOSE 138 mg/dL (74-106); POTASSIUM 4.1 mmol/L (3.5-5.1); SODIUM SERUM 141 mmol/L (136-145); UREA NITROGEN, BLOOD 11 mg/dL (7-18)
[2019-05-06 06:40] LABS: MAGNESIUM 2.6 mg/dL (1.8-2.4); PHOSPHORUS 5.5 mg/dL (2.5-4.9)
--- NOTE | 2019-05-06 06:53 | NUR ---
PT IS SLEEPING COMFORTABLY IN BED EYES CLOSED.CHEST RISE AND FALL. NO S/S OF DISTRESS. SAFETY MEASURES IN PLACE. WILL ENDORSE TO DAY RN. PT IS STABLE.
--- NOTE | 2019-05-06 07:20 | NUR ---
RECEIVED REPORT FROM MEDICAL DELIVERY DRIVER NURSE. PT IS AWAKE, NO SIGNS OF DISTRESS. PT HAS IV AT LEFT UA 22G WITH NS INFUSING AT 60ML/HR. PT HAS BRIZUELA CATH. PT HAS NKA, FULL CODE, ON CARDIAC DIET. WILL CONTINUE TO MONITOR
[2019-05-06 08:00] VITALS: BP 107/63
[2019-05-06] MEDS: NACL 0.9% 1,000 ML IV SCH ×2 (08:28→23:54)
[2019-05-06] MEDS ORDERED: CALCIUM ACETATE 667 MG TAB PO SCH (09:00)
[2019-05-06] MEDS: NICOTINE TRANSD SYS 14 MG/24 HR PATCH TD SCH (09:00)
[2019-05-06] MEDS: LACTOBACILLUS RHAMNOSUS GG 1 EACH CAP PO SCH (09:41)
[2019-05-06] MEDS: DULoxetine 30 MG CAPDR PO SCH ×2 (09:42→21:23)
[2019-05-06] MEDS: TAMSULOSIN 0.4 MG CAP PO SCH (09:42)
[2019-05-06] MEDS: BACLOFEN 10 MG TAB PO SCH ×2 (09:43→21:23)
[2019-05-06] MEDS: GABAPENTIN 300 MG CAP PO SCH ×3 (09:43→17:42)
[2019-05-06] MEDS: MORPHINE TAB ER 30 MG TABER PO SCH ×2 (09:43→21:23)
--- NOTE | 2019-05-06 09:45 | NUR ---
ORDERED TRANSFER TO [place]. TELE MONITOR REMOVED AND GIVEN TO DRAPERY MAKER.
--- NOTE | 2019-05-06 09:45 | NUR ---
SCHEDULED MEDS GIVEN. PT IS STABLE. HOLD HEPARIN PER PARAMETER PLATELET 113. PT REFUSED NICOTINE PATCH. CALL LIGHT WITHIN PT'S REACH. WILL CONTINUE TO MONITOR
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
[2019-05-06] MEDS: MUPIROCIN CA NASAL 2% 1GM TUBE NS SCH (11:38)
[2019-05-06] MEDS: CHLORHEXADINE GLUC 2% CLOTH TP SCH (11:39)
[2019-05-06 12:00] VITALS: BP 110/68
--- NOTE | 2019-05-06 12:20 | NUR ---
ALEX FROM LAB CALLED ABOUT JULIENNE THROUGH RESULT OF 24.4.
--- NOTE | 2019-05-06 12:21 | NUR ---
CALLED PHARMACY AND SPOKE TO ALBERTO TO INFORM REGARDING VANCO THROUGH RESULT. THEY SAID TO HOLD VANCO. AND ANOTHER VANCO THROUGH WILL BE DONE BARTOLOME AT 6AM.
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
--- NOTE | 2019-05-06 13:05 | NUR ---
FREQUENT ROUNDING DONE. PT IS SLEEPING, NO SIGNS OF DISTRESS. CALL LIGHT WITHIN PT'S REACH. BED ON LOW, SIDERAILS UP.
--- NOTE | 2019-05-06 14:08 | NUR ---
05/06/19 RD FOLLOW UP COMPLETED PLEASE REFER TO NUTRITION ASSESSMENT UNDER CARE ACTIVITY FOR ESTIMATED NUTRITIONAL NEEDS. 1. CONTINUE REGULAR, HIGH PROTEIN DIET TOLERATED 2. MONITOR PO INTAKE FOR FURTHER DECLINE 3. RD TO FOLLOW-UP 3-5 DAYS, MODERATE RISK BURAK PEÑALOZA, RD
--- NOTE | 2019-05-06 16:05 | NUR ---
FREQUENT ROUNDING DONE. CALL LIGHT WITHIN PT'S REACH. UNABLE TO CHANGE DRESSING ON SACRAL AREA BECAUSE PT IS COMBATIVE AND REFUSING TO BE MOVED.
--- NOTE | 2019-05-06 16:30 | NUR ---
CLEANED AND CHANGED DRESSING IN RIGHT LOWER LEG.
--- NOTE | 2019-05-06 19:05 | NUR ---
REPORT GIVEN TO AIRPORT SECURITY SCREENER NURSE FOR CONTINUITY OF CARE. PT IS SLEEPING, NO SIGNS OF DISTRESS. PT IS STABLE.
--- NOTE | 2019-05-06 19:10 | NUR ---
RECEIVED REPORT FROM DAY SHIFT NURSE. PT SLEEPING BUT AROUSABLE. NO S/S OF PAIN. NO S/S OF RESP DISTRESS. ON O2 AT 2L/MIN VIA NC. IV TO LEFT UPPER ARM #22G, NS AT 60 ML/HR INFUSING WELL. PT HAS DRESSING TO RIGHT LOWER EXT, CLEAN DRY AND INTACT. SAFETY PRECAUTION IN PLACE. CALL LIGHT WITHIN REACH.
--- NOTE | 2019-05-06 19:40 | NUR ---
SCHEDULED MEDS GIVEN. PT TOLERATED WELL. BED ON LOW, SIDERAILS UP.CALL LIGHT WITHIN PT'S REACH.
[2019-05-06 20:00] VITALS: BP 148/86
--- NOTE | 2019-05-06 21:20 | NUR ---
PLATELET CT 113. PER DR. ALIN DORAN TO GIVE HEPARIN. WILL HOLD HEPARIN IF PLT CT BELOW 50.
[2019-05-06] MEDS: traZODone 50 MG TAB PO SCH (21:24)
--- NOTE | 2019-05-06 23:00 | NUR ---
PT IN BED, SCREAMING, CONFUSED, SCRATCHING HIS ARMS AND LEGS. SAFETY PRECAUTION IN PLACE.
--- NOTE | 2019-05-06 23:05 | NUR ---
PT ASKING FOR MEDS TO MAKE HIM SLEEP. MADE AWARE.
[2019-05-06] MEDS ORDERED: MELATONIN 3 MG TAB PO PRN (23:10)
[2019-05-06] MEDS ORDERED: diphenhydrAMINE 50 MG/ML VIAL IVP SCH (23:10)
--- NOTE | 2019-05-06 23:25 | NUR ---
DR. OGDEN ORDERED BENADRYL 25 MG FOR ITCH AND MELATONIN 3 MG FOR INABILITY TO SLEEP. PER IT'S OKAY TO GIVE BOTH AT THE SAME TIME.
[2019-05-07] VITALS: BP 100/56
[2019-05-07] MEDS: HYDRAGUARD CREAM TP SCH ×2 (00:16→13:43)
[2019-05-07] MEDS: Z-GUARD PASTE TP SCH ×2 (00:16→13:43)
[2019-05-07] MEDS ORDERED: NACL 0.9% 500 ML IV ONE (00:25)
--- NOTE | 2019-05-07 00:32 | NUR ---
DR. CHIU CAME IN TO SEE PT. ORDERED URINALYSIS AND URINE CULTURE.
--- NOTE | 2019-05-07 00:50 | NUR ---
URINE SENT TO LAB
--- NOTE | 2019-05-07 01:28 | NUR ---
VERIFIED ANTIBIOTIC ORDER MERREM 1000MG WITH DR. CHIU. PER JUST GIVE THE FIRST DOSE AT 0500.
[2019-05-07 02:19] LABS: APPEARANCE,URINE CLEAR (CLEAR); COLOR,URINE YELLOW (YELLOW)
[2019-05-07 02:20] LABS: BILIRUBIN,URINE NEGATIVE (NEGATIVE); BLOOD, URINE TRACE (NEGATIVE); LEUKOCYTE ESTERASE ,URINE NEGATIVE (NEGATIVE); NITRITE, URINE NEGATIVE (NEGATIVE); UGLUCOSE NEGATIVE (NEGATIVE)
--- NOTE | 2019-05-07 03:30 | NUR ---
PT SLEEPING BUT AROUSABLE. REPOSITIONED PT. NO S/S OF RESP DISTRESS. NO S/S OF PAIN OR DISCOMFORT. SAFETY PRECAUTION IN PLACE. CALL LIGHT WITHIN REACH.
[2019-05-07 04:00] VITALS: BP 103/64
[2019-05-07 04:09] LABS: RBC,URINE 0-5 /HPF (0-5); WBC,URINE 0-5 /HPF (0-5)
[2019-05-07] MEDS ORDERED: MEROPENEM 1,000 MG VIAL IV ONE (04:21)
[2019-05-07] MEDS: MEROPENEM 1,000 MG in NACL 0.9% 100 ML IV SCH ×3 (04:29→21:11)
--- NOTE | 2019-05-07 05:50 | NUR ---
PT AWAKE. PT KEPT DRY AND COMFORTABLE. NEEDS ATTENDED. DENIES PAIN OR SOB. CALL LIGHT WITHIN REACH.
[2019-05-07 07:04] LABS: BASOPHILS % (AUTO) 0.3 % (0.0-2.0); EOSINOPHILS % (AUTO) 0.7 % (0.0-4.0); HEMATOCRIT 35.5 % (36-52); HEMOGLOBIN 11.6 g/dL (12.0-18.0); LYMPHOCYTES # (AUTO) 0.8 K/uL (2.0-11.5); LYMPHOCYTES % (AUTO) 27.8 % (20.5-51.1); MEAN CORPUSCULAR HEMOGLOBIN 32 pg (27-31); MEAN CORPUSCULAR HGB CONC 33 g/dL (33-37); MEAN CORPUSCULAR VOLUME 97.1 fL (80-94); MONOCYTES # (AUTO) 0.3 K/uL (0.8-1.0); MONOCYTES % (AUTO) 11.7 % (1.7-9.3); NEUTROPHILS # (AUTO) 1.6 K/uL (1.8-7.7); NEUTROPHILS % (AUTO) 59.5 % (42.2-75.2); PLATELET COUNT (AUTO) 105 K/uL (140-450); RED BLOOD CELL COUNT(AUTO) 3.66 MIL/uL (4.20-6.10); RED CELL DISTRIBUTION WIDTH 15.1 % (11.6-13.7); WHITE BLOOD COUNT (AUTO) 2.7 K/uL (4.8-10.8)
--- NOTE | 2019-05-07 07:15 | NUR ---
ENDORSED PT TO DAY SHIFT NURSE. PT IN STABLE CONDITION.
--- NOTE | 2019-05-07 07:17 | NUR ---
RECEIVED REPORT AT BEDSIDE FROM [facility] SHIFT NURSE. PATIENT LYING IN BED RESTING ON BED, AROUSABLE TO VOICE. PT IS AAOX2 TO NAME AND PLACE. RESPIRATION EVEN AND UNLABORED ON RA. NOT IN ANY ACUTE DISTRESS, IV ON ANNETTE 22G, CLEAN AND INTACT, INFUSING NS AT 60 ML/HR. RLE VENOUS STASIS WITH XEROFORM DRESSING INTACT. PT IS CONTINENT AND ABLE TO USE THE URINAL BY BEDSIDE. SAFETY MEASURES IN PLACE. SEIZURE PRECAUTION AND CONTACT PRECAUTION IN PLACE. CALL LIGHT WITHIN REACH. CONTINUE TO MONITOR. KEEP BED AT LOW POSITION. BED ALARM ACTIVATED. ASSESSMENT DONE.
[2019-05-07 07:53] LABS: ANION GAP 8.6 (8-16); CARBON DIOXIDE 34.5 mmol/L (21-32); CHLORIDE 107 mmol/L (98-107); CREATININE 1.1 mg/dL (0.6-1.3); GLUCOSE 96 mg/dL (74-106); POTASSIUM 4.1 mmol/L (3.5-5.1); SODIUM SERUM 146 mmol/L (136-145); UREA NITROGEN, BLOOD 10 mg/dL (7-18)
[2019-05-07 07:54] LABS: MAGNESIUM 2.2 mg/dL (1.8-2.4); PHOSPHORUS 4.8 mg/dL (2.5-4.9)
[2019-05-07 08:00] VITALS: BP 130/89
[2019-05-07] MEDS ORDERED: Vancomycin Per Pharmacy MC (09:39)
[2019-05-07] MEDS ORDERED: MERO1PDS2 IV (09:39)
[2019-05-07] MEDS: LACTOBACILLUS RHAMNOSUS GG 1 EACH CAP PO SCH (10:08)
[2019-05-07] MEDS: TAMSULOSIN 0.4 MG CAP PO SCH (10:10)
[2019-05-07] MEDS: DULoxetine 30 MG CAPDR PO SCH ×2 (10:10→21:08)
[2019-05-07] MEDS: GABAPENTIN 300 MG CAP PO SCH ×3 (10:10→18:09)
[2019-05-07] MEDS: BACLOFEN 10 MG TAB PO SCH ×2 (10:11→21:08)
[2019-05-07] MEDS: MORPHINE TAB ER 30 MG TABER PO SCH ×2 (10:11→21:08)
[2019-05-07] MEDS: NICOTINE TRANSD SYS 14 MG/24 HR PATCH TD SCH (10:12)
--- NOTE | 2019-05-07 10:13 | NUR ---
ADMINISTERED ALL DUE MEDS. HEAD OF BED ELEVATED. BP CHECKED 130/89, HR 93. HELD HEPARIN SQ PER MD ORDER. NO SOB NOTED. TOLERATED WELL. NO C/O PAIN. EDUCATED PATIENT ON THE MEDICATION. SAFETY MEASURES IN PLACE. BED ALARM ACTIVATED. SEIZURE PRECAUTION PROVIDED. CALL LIGHT WITHIN REACH. CONT. TO MONITOR.
[2019-05-07] MEDS: CHLORHEXADINE GLUC 2% CLOTH TP SCH (11:36)
[2019-05-07] MEDS: MUPIROCIN CA NASAL 2% 1GM TUBE NS SCH (11:36)
--- NOTE | 2019-05-07 11:37 | NUR ---
ADMINISTERED BACTROBAN OINTMENT AND PROVIDED CHG BATH, MEDS EDUCATION AND INFECTION EDUCATION PROVIDED. REINFORCEMENT NEEDED. PT AWAKE AND TALKING BY HIMSELF. NO SIGNS OF DISTRESS NOTED. SAFETY MEASURES IN PLACE. BED ALARM ACTIVATED.
[2019-05-07] MEDS: VANCOMYCIN 1,000 MG in DEXTROSE 5% 250 ML IV SCH (12:56)
--- NOTE | 2019-05-07 12:56 | NUR ---
ADMINISTERED VANCO IVPB. MED ED PROVIDED AND REINFORCEMENT NEEDED. PATIENT AWAKE AND TALKING TO HIMSELF. ASKED IF PT IS TALKING TO SOMEONE, PT SAID "NO, GET OUT." NO SIGNS OF DISTRESS NOTED. SAFETY MEASURES IN PLACE. BED LOW POSITION AND CALL LIGHT WITHIN REACH. BED ALARM ACTIVATED.
--- NOTE | 2019-05-07 13:27 | NUR ---
PERFORMED WOUND CARE. CHANGED DRESSING AND APPLIED HYDROGUARD, HYDROGEL, PATIENT TOLERATED WELL. WOUND PICTURE TAKEN. WOUND EDUCATION PROVIDED AND REINFORCEMENT NEEDED. PATIENT'S AWAKE, RESTING ON BED, NO SIGNS OF DISTRESS, SAFETY MEASURES IN PLACE, BED ALARM ACTIVATED.
--- NOTE | 2019-05-07 13:44 | NUR ---
ADMINISTERED MED PER MD PRESCRIBED. MED EDUCATION PROVIDED TO PATIENT. REINFORCEMENT NEEDED. UNABLE TO SCAN HYDROGUARD AND Z-GUARD. MANUALLY ENTERED. PATIENT IS AWAKE, RESTING ON BED, SAFETY MEASURES IN PLACE. BED ALARM ACTIVATED.
--- NOTE | 2019-05-07 15:08 | NUR ---
VANCO IVPB FINISHED INFUSING, REMOVED AND ADMINISTERED MERREM IVPB. TOLERATED WELL. NO A/R NOTED. MEDICATION EDUCATION PROVIDED. REINFORCEMENT NEEDED. PATIENT IS NOT IN ANY DISTRESS. SAFETY MEASURES IMPLEMENTED. CALL LIGHT WITHIN REACH. ALL NEEDS ATTENDED. WE'LL CONTINUE TO MONITOR.
--- NOTE | 2019-05-07 15:48 | NUR ---
PATIENT LYING IN BED. NOT IN ANY ACUTE DISTRESS. PATIENT ASKED FOR WATER AND GAVE WATER TO DRINK. NO C/O PAIN/DISCOMFORT. KEPT COMFORTABLE. CALL LIGHT WITHIN REACH. BED ALARM IN PLACED. WE'LL CONTINUE TO MONITOR.
[2019-05-07 16:00] VITALS: BP 125/75
--- NOTE | 2019-05-07 16:25 | NUR ---
NOTIFIED PT' FRIEND ROMERO THAT PT WILL BE TRANSFER TO [facility] THIS EVENING. ANSWERED ALL ROMERO'S QUESTION AND ROMERO WAS AWARE OF THE TRANSFER/
--- NOTE | 2019-05-07 16:50 | NUR ---
RECEIVED A CALL FROM LAB THAT PT IS POSITIVE FOR MRSA COCCI FOR LEG. NOTIFIED DR BALLARD AND DR BALLARD WAS AWARE.
--- NOTE | 2019-05-07 17:00 | NUR ---
CALLED [facility] [phone] AND GAVE FULL REPORT TO ALFREDO. ANSWERED ALL ALFREDO'S QUESTIONS AND ALFREDO WAS AWARE THAT PT WILL BE TRANSFER TO HIS FACILITY THIS EVENING AND GO TO ROOM 34A UNDER THE CARE OF YADIEL ANTHONY. PROVIDED A CALL BACK NUMBER FOR FURTHER QUESTIONS.
--- NOTE | 2019-05-07 17:34 | NUR ---
RECEIVED A CALL FROM [facility] AND TOLD THAT THEY DO NOT HAVE BED AVAILABLE DUE TO PT IS IN ISOLATION ROOM. IF ANY QUESTION, WE CAN CALL HIS AUTOMOBILE DEALER AT [phone].
--- NOTE | 2019-05-07 17:44 | NUR ---
RECEIVED A CALL FROM OCTAVIA PLANT ENGINEERING SUPERVISOR FROM [facility] AND STATED THAT SHE WASNT AWARE AND WAS NOT INFORM THAT PT IS IN ISOLATION ROOM AND THEY DO NOT HAVE ROOM AVAILABLE TODAY AND TONIGHT. PER OCTAVIA, IN ORDER TO COHORT PT WITH ANOTHER PT, WE NEED AN ORDER FROM MD TO INPUT A BRIZUELA FOR MDRO URINE. EXPLAINED TO DR BALLARD ABOUT THIS, DR BALLARD DECLINED THE BRIZUELA. TOLD OCTAVIA ON REGARD OF MD DECISION. TRANSFER HOLD DUE TO NO ROOM AVAILABLE. DR BALLARD AND MEDICAL DRIVER AWARE.
--- NOTE | 2019-05-07 17:48 | NUR ---
CALLED [facility] AND SPOKE WITH JOE TO CANCEL SIMULATION EDUCATOR. JOE WAS AWARE AND SAID "OK, I WILL CANCEL THE SIMULATION EDUCATOR."
[2019-05-07] MEDS: NACL 0.9% 1,000 ML IV SCH (18:10)
--- NOTE | 2019-05-07 18:11 | NUR ---
ELEVATED HOB AND ADMINISTERED GABAPENTIN PO ORDERED. TOLERATED WELL. MED EDUCATION PROVIDED. PATIENT IN NOT IN ANY DISTRESS. NO C/O PAIN. SAFETY MEASURES IN PLACE. BED ALARM IN PLACE.
--- NOTE | 2019-05-07 19:09 | NUR ---
RECEIVED PATIENT IN STABLE CONDITION FROM AM SHIFT NURSE FOR CONTINUITY OF CARE. RESPIRATIONS EVEN, UNLABORED. NO S/SX ACUTE DISTRESS. IV SITE TO LEFT UPPER ARM 22G PATENT/INTACT, INFUSING FLUIDS WELL. ISOLATION PRECAUTIONS OBSERVED. SAFETY MEASURES IN PLACE. NO C/O PAIN. CALL LIGHT WITHIN REACH. WILL CONTINUE TO MONITOR.
--- NOTE | 2019-05-07 19:09 | NUR ---
ENDORSED PATIENT AT BEDSIDE WITH NOC SHIFT RN. PATIENT IS AWAKE. NO ACUTE DISTRESS. SAFETY MEASURES IN PLACE. BED ALARM IN PLACE.
--- NOTE | 2019-05-07 21:05 | NUR ---
AWAKE AND IN STABLE CONDITION. NO C/O PAIN. NO S/SX ACUTE DISTRESS. CALL LIGHT WITHIN REACH. WILL CONTINUE TO MONITOR.
[2019-05-07] MEDS: traZODone 50 MG TAB PO SCH (21:08)
[2019-05-07] MEDS: NACL 0.45% 1,000 ML IV SCH (21:10)
--- NOTE | 2019-05-07 23:41 | NUR ---
MADE ROUNDS. PATIENT ASLEEP AND IN STABLE CONDITION. NO C/O PAIN. NO S/SX ACUTE DISTRESS. CALL LIGHT WITHIN REACH. WILL CONTINUE TO MONITOR.
[2019-05-08] VITALS: BP 129/76
[2019-05-08] MEDS ORDERED: OLANZapine 5 MG TAB PO PRN
--- NOTE | 2019-05-08 01:00 | NUR ---
PATIENT AWAKE AND IN STABLE CONDITION. NO C/O PAIN. NO S/SX ACUTE DISTRESS. CALL LIGHT WITHIN REACH. WILL CONTINUE TO MONITOR.
[2019-05-08] MEDS: MORPHINE SULFATE 2 MG/ML SYR IVP PRN ×2 (02:30→20:34)
--- NOTE | 2019-05-08 02:30 | NUR ---
PATIENT C/O ACHING B/L LEG PAIN 12/07. MEDICATED ORDERED. CALL LIGHT WITHIN REACH. WILL CONTINUE TO MONITOR.
[2019-05-08] MEDS: HYDRAGUARD CREAM TP SCH ×2 (02:34→13:50)
[2019-05-08] MEDS: Z-GUARD PASTE TP SCH ×2 (02:35→13:50)
--- NOTE | 2019-05-08 03:30 | NUR ---
REASSESSED PAIN, PATIENT IS ASLEEP. NO S/SX ACUTE DISTRESS. CALL LIGHT WITHIN REACH. WILL CONTINUE TO MONITOR.
[2019-05-08] MEDS: MEROPENEM 1,000 MG in NACL 0.9% 100 ML IV SCH ×3 (04:08→20:30)
[2019-05-08] MEDS: VANCOMYCIN 1,000 MG in DEXTROSE 5% 250 ML IV SCH ×2 (05:23→23:51)
--- NOTE | 2019-05-08 05:40 | NUR ---
PATIENT IS AWAKE AND IN STABLE CONDITION. NO C/O PAIN. NO S/SX ACUTE DISTRESS. CALL LIGHT WITHIN REACH. WILL CONTINUE TO MONITOR.
[2019-05-08 07:19] LABS: ANION GAP 9.6 (8-16); CARBON DIOXIDE 33.8 mmol/L (21-32); CHLORIDE 103 mmol/L (98-107); GLUCOSE 94 mg/dL (74-106); POTASSIUM 3.4 mmol/L (3.5-5.1); SODIUM SERUM 143 mmol/L (136-145); UREA NITROGEN, BLOOD 10 mg/dL (7-18)
--- NOTE | 2019-05-08 07:20 | NUR ---
ENDORSED PATIENT TO AM SHIFT NURSE IN STABLE CONDITION FOR CONTINUITY OF CARE.
--- NOTE | 2019-05-08 07:21 | NUR ---
RECEIVED REPORT FROM RESIDENTIAL MANAGER NURSE JENNIFER FOR CONTINUITY OF CARE. PT IN STABLE CONDITION. RESPIRATIONS EVEN AND UNLABORED, 02 2L VIA NC. IV INTACT AND PATENT. SAFETY MEASURES IN PLACE. BED IN LOW POSITION. BED ALARM ON. CALL LIGHT AT BEDSIDE. WILL CONTINUE TO MONITOR.
[2019-05-08 08:00] VITALS: BP 116/79
[2019-05-08] MEDS: NICOTINE TRANSD SYS 14 MG/24 HR PATCH TD SCH (09:00)
--- NOTE | 2019-05-08 09:02 | NUR ---
PT FINISHING UP BREAKFAST AT THIS TIME. RESPIRATIONS EVEN AND UNLABORED. BED IN LOW POSITION. CALL LIGHT AT BEDSIDE. WILL CONTINUE TO MONITOR.
[2019-05-08] MEDS: LACTOBACILLUS RHAMNOSUS GG 1 EACH CAP PO SCH (10:25)
[2019-05-08] MEDS: BACLOFEN 10 MG TAB PO SCH ×2 (10:26→20:32)
[2019-05-08] MEDS: TAMSULOSIN 0.4 MG CAP PO SCH (10:26)
[2019-05-08] MEDS: GABAPENTIN 300 MG CAP PO SCH ×3 (10:26→16:28)
[2019-05-08] MEDS: MORPHINE TAB ER 30 MG TABER PO SCH ×2 (10:27→20:23)
[2019-05-08] MEDS: DULoxetine 30 MG CAPDR PO SCH ×2 (10:27→20:31)
[2019-05-08] MEDS: CHLORHEXADINE GLUC 2% CLOTH TP SCH (11:29)
[2019-05-08] MEDS: MUPIROCIN CA NASAL 2% 1GM TUBE NS SCH (11:29)
--- NOTE | 2019-05-08 11:33 | NUR ---
PT SLEEPING AT THIS TIME. RESPIRATIONS EVEN AND UNLABORED. BED IN LOW POSITION. CALL LIGHT AT BEDSIDE. WILL CONTINUE TO MONITOR.
--- NOTE | 2019-05-08 13:10 | NUR ---
GAVE COFFEE PER PT REQUEST. PT IN STABLE CONDITION. RESPIRATIONS EVEN AND UNLABORED. BED IN LOW POSITION. CALL LIGHT AT BEDSIDE. WILL CONTINUE TO MONITOR.
[2019-05-08 14:38] LABS: BASOPHILS % (AUTO) 0.4 % (0.0-2.0); EOSINOPHILS % (AUTO) 0.9 % (0.0-4.0); HEMATOCRIT 40.4 % (36-52); HEMOGLOBIN 12.9 g/dL (12.0-18.0); LYMPHOCYTES # (AUTO) 0.7 K/uL (2.0-11.5); LYMPHOCYTES % (AUTO) 20.3 % (20.5-51.1); MEAN CORPUSCULAR HEMOGLOBIN 31 pg (27-31); MEAN CORPUSCULAR HGB CONC 32 g/dL (33-37); MEAN CORPUSCULAR VOLUME 96.6 fL (80-94); MONOCYTES # (AUTO) 0.4 K/uL (0.8-1.0); MONOCYTES % (AUTO) 10.5 % (1.7-9.3); NEUTROPHILS # (AUTO) 2.5 K/uL (1.8-7.7); NEUTROPHILS % (AUTO) 67.9 % (42.2-75.2); PLATELET COUNT (AUTO) 146 K/uL (140-450); RED BLOOD CELL COUNT(AUTO) 4.18 MIL/uL (4.20-6.10); RED CELL DISTRIBUTION WIDTH 14.8 % (11.6-13.7); WHITE BLOOD COUNT (AUTO) 3.7 K/uL (4.8-10.8)
[2019-05-08 14:45] LABS: ANION GAP 9.7 (8-16); CARBON DIOXIDE 36.8 mmol/L (21-32); CHLORIDE 103 mmol/L (98-107); GLUCOSE 121 mg/dL (74-106); POTASSIUM 4.5 mmol/L (3.5-5.1); SODIUM SERUM 145 mmol/L (136-145); UREA NITROGEN, BLOOD 11 mg/dL (7-18)
[2019-05-08 14:49] LABS: MAGNESIUM 1.7 mg/dL (1.8-2.4); PHOSPHORUS 3.8 mg/dL (2.5-4.9)
--- NOTE | 2019-05-08 15:30 | NUR ---
INSERTED NEW IV. 22G RIGHT FOREARM. PT TOLERATED WELL. LEFT UPPER ARM 22G REMOVED DUE TO LEAKAGE. NO INJURY AT SITE. LUMEN INTACT.
[2019-05-08 16:00] VITALS: BP 103/63
[2019-05-08] MEDS: NACL 0.45% 1,000 ML IV SCH (16:32)
--- NOTE | 2019-05-08 17:30 | NUR ---
CHANGING PT AFTER URINATION . PT TOLERATED WELL. INFORMED JOE KEMP PT SCROTUM AND CONTENTS WERE SWOLLEN. JOE KEMP ORDERED US SCROTUM AND CONTENTS AT THIS TIME. PT IN STABLE CONDITION.
--- NOTE | 2019-05-08 19:30 | NUR ---
GAVE REPORT TO BURN CENTER NURSE NURSE CARYN FOR CONTINUITY OF CARE. PT IN STABLE CONDITION.
--- NOTE | 2019-05-08 19:31 | NUR ---
RECEIVED REPORT FROM AM SHIFT NURSE DONYA FOR CONTINUITY OF CARE. PT IN STABLE CONDITION. RESPIRATIONS EVEN AND UNLABORED, 02 2L VIA NC. IV INTACT AND PATENT. SAFETY MEASURES IN PLACE. BED IN LOW POSITION. BED ALARM ON. CALL LIGHT AT BEDSIDE. WILL CONTINUE TO MONITOR.
--- NOTE | 2019-05-08 20:15 | NUR ---
USD SCROTUM CONTENTS FOR SWELLING DONE AT BEDSIDE.AWAITING FOR RESULT
--- NOTE | 2019-05-08 20:23 | NUR ---
PT REFUSED THE MS CONTIN 2 TABS ROUTINE, HE REQUESTS FOR THE IV MORPHINE. 12/[address] IN[address] BAXTER, WILL ADMINISTER
[2019-05-08] MEDS: traZODone 50 MG TAB PO SCH (20:32)
--- NOTE | 2019-05-08 23:10 | NUR ---
PT SLEEPING,COMFORTABLY, JUST ASKED FOR A BLANKET PT SAID HE IS COLD. NO RESPIRATORY DISTRESS, NO COMPLAINTS AT THIS TIME
[2019-05-08 23:43] VITALS: BP 143/72
--- NOTE | 2019-05-09 01:40 | NUR ---
WOUND ASSESSMENT AND TX DONE; DINING ROOM BUSSER, TOOK A PICTURE OF WOUNDS (THURSDAY SCHED). WILL CONTINUE TO MONITOR
[2019-05-09] MEDS: HYDRAGUARD CREAM TP SCH ×2 (01:51→13:08)
[2019-05-09] MEDS: Z-GUARD PASTE TP SCH ×2 (01:52→13:09)
--- NOTE | 2019-05-09 02:45 | NUR ---
PT SAID THAT HE WANTS HIS PERSONAL BELONGINGS MONEY AND WALLET. WILL CHECK WITH SECURITY
[2019-05-09] MEDS: MORPHINE SULFATE 2 MG/ML SYR IVP PRN ×2 (04:07→10:29)
[2019-05-09] MEDS: MEROPENEM 1,000 MG in NACL 0.9% 100 ML IV SCH ×2 (04:19→12:43)
--- NOTE | 2019-05-09 05:22 | NUR ---
PT AWAKE, PICKING ON HIS WOUNDS, EDUCATED HIM NOT TO PICK THE SCABS FROM HIS WOUNDS. OR IT WILL BE A SOURCE OF ENTRY OF BACTERIA IF IT IS OPEN. PT VERBALIZED UNDERSTANDING.
--- NOTE | 2019-05-09 05:34 | NUR ---
SECURITY CAME AND SAID WILL CHECK ON HIS PERSONAL BELONGINGS
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
[2019-05-09] MEDS: NACL 0.45% 1,000 ML IV SCH (05:57)
--- NOTE | 2019-05-09 05:57 | NUR ---
PT REFUSED LABS PER [facility] EXPLAINED TO PT BENEFITS AND RISKS. PT VERBALIZED UNDERSTANDING
--- NOTE | 2019-05-09 05:59 | NUR ---
DR. BAXTER AWARE THAT PT REFUSING HIS LABS. PER PT HE WANTS TO GO HOME
--- NOTE | 2019-05-09 06:20 | NUR ---
PT AWAKE, ALERT ORIENTED X 3 WITH SOME PERIODS OF CONFUSION. NO RESPIRATORY DISTRESS, NO COMPLAINTS OF PAIN, PT IN STABLE CONDITION. WILL ENDORSE TO NEXT SHIFT.
--- NOTE | 2019-05-09 07:10 | NUR ---
RECEIVED PT FROM SOFTWARE SYSTEMS ENGINEER NURSECARYN PT IS ASLEEP AND LYING ON THE BED WITH SIDE RAILS UP AND CALL LIGHT WITHIN REACH, PT IS ON O2 2L NC, IV LINE ON THE RT FA G. 22 WITH NS INFUSING AT 60ML/HR, INTACT, LEFT LEG CONTRACTED AND RT LEG WOUND NOTED REINFORCED WITH DRESSING, NO SIGN OF DISTRESS NOTED AND WILL MONITOR PT.
[2019-05-09 08:00] VITALS: BP 144/89
[2019-05-09] MEDS: NICOTINE TRANSD SYS 14 MG/24 HR PATCH TD SCH (09:00)
[2019-05-09] MEDS ORDERED: MAGNESIUM OXIDE 400 MG TAB PO SCH (09:00)
[2019-05-09] MEDS: MORPHINE TAB ER 30 MG TABER PO SCH (09:00)
[2019-05-09] MEDS: TAMSULOSIN 0.4 MG CAP PO SCH (09:46)
[2019-05-09] MEDS: LACTOBACILLUS RHAMNOSUS GG 1 EACH CAP PO SCH (09:47)
[2019-05-09] MEDS: GABAPENTIN 300 MG CAP PO SCH ×2 (09:49→12:43)
[2019-05-09] MEDS: BACLOFEN 10 MG TAB PO SCH (09:50)
--- NOTE | 2019-05-09 10:00 | NUR ---
MORNING MEDICATION GIVEN. NICOTINE PATCH REFUSED AND MORPHINE SULFATE TAB REFUSED. INSISTED TO GET MORPHINE SULPHATE IVP. EXPLAINED RISKS AND BENEFITS. PT. NOT IN DISTRESSED. WILL CONTINUE TO MONITOR.
[2019-05-09] MEDS: DULoxetine 30 MG CAPDR PO SCH (10:07)
--- NOTE | 2019-05-09 10:29 | NUR ---
PT C/O PAIN RATE OF 9/10 AND PAIN MEDICATION WAS GIVEN VIA IV PUSH, WILL RE-ASSESS PAIN AND MONITOR PT.
[2019-05-09] MEDS ORDERED: VANC1PLA7 IV (11:58)
--- NOTE | 2019-05-09 14:00 | NUR ---
WOUND ASSESSMENT DONE TO PT NOW AND MEDICINE WERE APPLIED.
[2019-05-09] MEDS ORDERED: LACT-81 PO (14:12)
--- NOTE | 2019-05-09 14:38 | NUR ---
CALLED [facility] AT [phone] AND GAVE REPORT TO HARSHAL SUMNER, INFORMED RN THAT PT WILL BE PLACED IN ROM 6-A, UNDER THE SERVICE MANDY HOLDEN AND WILL BE TRANSPORTED BY [facility] AND GRAIN PICKER TIME WILL BE AT 1500, AND HARSHAL SUMNER VERBALIZED UNDERSTANDING.
--- NOTE | 2019-05-09 15:25 | NUR ---
DISCHARGED PT TO [facility]IA [facility] WITH [facility] PERSONNEL, IV LINE ON THE RT FA G. 22 WAS KEPT INTACT FOR IV ANTIBIOTICS CONTINUATION FOR 5 MORE DAYS, DISCHARGED TEACHINGS AND INSTRUCTIONS WERE GIVEN TO PT AND PT VERBALIZED UNDERSTANDING, ALL THE BELONGINGS WERE SENT TO PT. PT IS STABLE AT THIS TIME.
== END 2019-05-09 15:25 | DRG 177 ==
LOC: MED 14:57 → MMU 17:18
PROVIDERS: ADMIT General Practice; ATTEND General Practice
DX: J69.0 Pneumonitis due to inhalation of food and vomit (principal); E43 Unspecified severe protein-calorie malnutrition; L03.115 Cellulitis of right lower limb; Z68.1 Body mass index [BMI] 19.9 or less, adult; N39.0 Urinary tract infection, site not specified; L97.929 Non-pressure chronic ulcer of unspecified part of left lower leg with unspecified severity; L03.116 Cellulitis of left lower limb; Z87.891 Personal history of nicotine dependence; G40.909 Epilepsy, unspecified, not intractable, without status epilepticus; N40.0 Benign prostatic hyperplasia without lower urinary tract symptoms; Z22.322 Carrier or suspected carrier of Methicillin resistant Staphylococcus aureus; F32.9 Major depressive disorder, single episode, unspecified; L89.892 Pressure ulcer of other site, stage 2; E83.42 Hypomagnesemia; E83.39 Other disorders of phosphorus metabolism
CPT/HCPCS: 36415; 71045; 73630; 76870; 80048; 80053; 80202; 81001; 83036; 83605; 83690; 83735; 83880; 84100; 84443; 84484; 85025; 85610; 85730; 87040; 87070; 87075; 87081; 87086; 87186; 87205; 87804; 93005; 93925; 93970; 96365; 96375; 99285; J0696; J1200; J1644; J1940; J2185; J2270; J2405; J2543; J3370; J3475; J7030; J7060; Q0092; Q0163

== ENCOUNTER 2019-11-16 03:14 | Emergency (ER) | payer OTHER, MEDICAID ==
[~2019-11-16] VITALS: Ht 182.9 cm; Wt 79.4 kg
[~2019-11-16 03:14] MED LIST: ACAM333T PO; ACET-5636 PO; BACL10TA4 PO; CALC-1030 PO; DULO30EC PO; FERR325E14 PO; GABA400C PO; LACT-81 PO; MAGN400S60 PO; MERO1VIA15 IV; MSCON30 PO; TAMS0.4C96 PO; TRAZ-343 PO; VANC1PLA7 IV
[2019-11-16 03:15] VITALS: BP 113/66
--- NOTE | 2019-11-16 03:15 | NUR ---
PER FACILTY DOCUMENTATION: PMH: HTN, FX OF L KNEE, R FOOT, EPILEPSY, COPD, BHP, INSOMNIA, DEPRESSION. NKA
--- NOTE | 2019-11-16 03:15 | NUR ---
PT BIBA BLS TAKEN TO BED 2
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
--- NOTE | 2019-11-16 03:17 | NUR ---
Dr. Corrales examining patient.
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
--- NOTE | 2019-11-16 03:31 | NUR ---
PT REFUSED TYLENOL ADMINISTRATION , PT STATES " I WANT MORPHINE! I DON'T WANT ANY OF THE PUSSY BABY SHIT TYLENOL." DR. PAYNE MADE AWARE OF PT MEDICATION REFUSAL AT THIS TIME.
[2019-11-16] MEDS: ACETAMINOPHEN EXTRA STRENGTH 500 MG TAB PO ONE (03:32)
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
[2019-11-16] MEDS: BACITRACIN OINT 500 UNITS/GM PKT TP ONE (03:50)
--- NOTE | 2019-11-16 04:20 | NUR ---
TRANSPORTATION HAS BEEN CALLED FOR PT D/C , ETA FOR TRANSPORTATION 1030 - 1100 THIS MORNING. PT WILL BE TRANSPORTED BACK TO [facility] [phone]
--- NOTE | 2019-11-16 04:25 | NUR ---
BREAKFAST ORDERED FOR PT D/T TRANSPORTATION ETA 1030- 1100 THIS MORNING.
--- NOTE | 2019-11-16 05:02 | NUR ---
PT SLEEPING IN BED,LOCKED AND IN LOWEST POSITION, VISIBLE RISE AND FALL OF CHEST , HOB ELEVATED, SIDE RAIL X2 FOR PT SAFETY. PT AROUSABLE TO VERBAL STIMULATION, RR EVEN AND UNLABORED, VSS.
--- NOTE | 2019-11-16 07:10 | NUR ---
REPORT RECEIVED FROM HARSHAL RIVAS FOR CONTINUATION OF CARE.
--- NOTE | 2019-11-16 07:23 | NUR ---
REPORT GIVEN TO HARSHAL RODRÍGUEZ FOR TRANSFER OF CARE.
--- NOTE | 2019-11-16 08:20 | NUR ---
offered pt breakfast tray, pt declined
--- NOTE | 2019-11-16 08:25 | NUR ---
pt shouting and stating he wants pain medication. informed him i would let the know.
--- NOTE | 2019-11-16 08:26 | NUR ---
per jordy Morrow to order pt daily dose of percocet 10-325.
[2019-11-16] MEDS: oxyCODONE/APAP 5/325 MG 1 TAB TAB PO ONE (08:31)
--- NOTE | 2019-11-16 10:04 | NUR ---
PT RESTING IN BED, NO NEW NEEDS AT THIS TIME.
--- NOTE | 2019-11-16 10:30 | NUR ---
[facility] at bedside for pick and shovel worker.
--- NOTE | 2019-11-16 10:35 | NUR ---
report given to Godfrey Malin pt taken via [facility].
--- NOTE | 2019-11-16 10:38 | NUR ---
Patient discharged with v/s stable. Written and verbal after care instructions given and explained. Patient verbalized understanding. taken via gurney to intermediate. All questions addressed prior to discharge. Advised to follow up with PMD.
[2019-11-16 10:43] VITALS: BP 127/70
== END 2019-11-16 10:38 | disposition home or self-care (01) ==
LOC: MED 03:14
DX: S00.83XA Contusion of other part of head, initial encounter (principal); S80.211A Abrasion, right knee, initial encounter; F17.210 Nicotine dependence, cigarettes, uncomplicated; I10 Essential (primary) hypertension; J44.9 Chronic obstructive pulmonary disease, unspecified; R56.9 Unspecified convulsions; Z79.899 Other long term (current) drug therapy; W05.0XXA Fall from non-moving wheelchair, initial encounter; Y93.89 Activity, other specified; Y92.89 Other specified places as the place of occurrence of the external cause; Y99.8 Other external cause status
CPT/HCPCS: 99283

== ENCOUNTER 2020-01-02 14:34 | Emergency (ER) | payer OTHER, MEDICAID ==
[~2020-01-02] VITALS: Ht 182.9 cm; Wt 72.6 kg
[~2020-01-02 14:34] MED LIST changes: +ACET-2619 PO; -BACL10TA4 PO; -CALC-1030 PO; +CHOL50004 PO; +IMO2 PO; -LACT-81 PO; +LEVO750T2 PO; +LORA10TA19 PO; -MERO1VIA15 IV; +MSCON15 PO; -MSCON30 PO; +MULT-1868 PO; +NYST100022 TOP; -VANC1PLA7 IV
[2020-01-02 14:46] VITALS: BP 134/82
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
[2020-01-02] MEDS: KETOROLAC 30 MG/ML VIAL IM ONE (15:27)
[2020-01-02] MEDS: LORazepam 2 MG/ML VIAL IM ONE (15:28)
--- NOTE | 2020-01-02 15:35 | NUR ---
CALLED [facility] FOR [facility], FACILITY NOT ANSWERING
--- NOTE | 2020-01-02 15:45 | NUR ---
ERMD AT BEDSIDE
--- NOTE | 2020-01-02 15:50 | NUR ---
CALLED [facility] FOR PT D/C. NO ANSWER
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
--- NOTE | 2020-01-02 16:30 | NUR ---
SPOKE TO ZEINA FROM [facility]. PER ZEINA, TRANSPORT WENT HOME AT 1600. GAVE REPORT. PT TO BE TRANSPORTED BY TRANSPORT SERVICE ETA @1800
[2020-01-02] MEDS: fentaNYL citrate 0.05 MG/ML VIAL IM ONE (16:41)
--- NOTE | 2020-01-02 17:32 | NUR ---
REPORT GIVEN TO TJ CAPUTO, TRANSFER OF CARE AT THIS TIME
[2020-01-02 18:29] VITALS: BP 126/74
--- NOTE | 2020-01-02 18:29 | NUR ---
PT WAS D/C WITH [facility]. PT WAS INSTRCUTED TO FOLLOW UP WITH PCP AND EDUCATED ON HIM HOME CARE. PT UNDERSTOOD. [facility] WAS CALLED AND REPORT WAS GIVEN TO NASEEM. TRANSPORT PICKED UP PT O LIZANDRO. NO SIGN OF DISTRESS NOTED.
== END 2020-01-02 18:29 | disposition home or self-care (01) ==
LOC: MED 14:34
DX: M25.561 Pain in right knee (principal); I10 Essential (primary) hypertension; J44.9 Chronic obstructive pulmonary disease, unspecified; Z79.899 Other long term (current) drug therapy; Z98.890 Other specified postprocedural states
CPT/HCPCS: 96372; 99284; J1885; J2060; J3010; 99283

== ENCOUNTER 2020-02-21 12:57 | Emergency (ER) | payer OTHER, MEDICAID ==
[~2020-02-21] VITALS: Ht 182.9 cm; Wt 99.8 kg
--- NOTE | 2020-02-21 12:57 | NUR ---
PATIENT SHAGGY BLS TO ER BED 03
--- NOTE | 2020-02-21 12:57 | NUR ---
SHAGGY LAGOS from [facility] [place] a few weeks ago, reported that patient has beed drinking heavy for several days and unable to receive medication. C/O pain left ribb area, right knee and bilat foot pain. NKDA, PMH: HTN, siezure disorder, ETOH abuse, depression, BPH, arthritis. A, A, O x 4, cooperative, VVS, HOB elevated. No IV present. Resp even and unlabored, in NAD, moving exts w/o difficulty Awaiting evaluation/examination by MD Will continue to monitor
[2020-02-21 13:02] VITALS: BP 155/80
[2020-02-21] MEDS ORDERED: DICL20GE TP (13:33)
[2020-02-21] MEDS ORDERED: MENT1OIN22 TP (13:33)
[2020-02-21] MEDS ORDERED: BACL10TA4 PO (13:33)
[2020-02-21] MEDS ORDERED: KETOROLAC 60 MG/2 ML VIAL IM ONE (13:40)
--- NOTE | 2020-02-21 13:55 | NUR ---
Toradol IM given for right knee and bilat feet pain
--- NOTE | 2020-02-21 14:49 | NUR ---
Patient transported by DEMOND Bella back to [facility]. Report given to EMT. Discharge instructions and script for pain meds given to EMS. Patient discharged by MD, medically cleared with v/s stable. Written and verbal after care instructions given and explained. Patient verbalized understanding. Ambulance Transport with to [facility]pc. All questions addressed prior to discharge. Advised to follow up with PMD. All belongings taken with patient.
--- NOTE | 2020-02-21 15:03 | NUR ---
Report called to Samantha at [facility] [phone]
== END 2020-02-21 14:49 ==
LOC: MED 12:57
DX: M79.10 Myalgia, unspecified site (principal); J44.9 Chronic obstructive pulmonary disease, unspecified; I10 Essential (primary) hypertension; Z79.899 Other long term (current) drug therapy
CPT/HCPCS: 96372; 99283; J1885

== ENCOUNTER 2020-02-29 11:12 | Emergency (ER) | payer OTHER, MEDICAID ==
[~2020-02-29] VITALS: Ht 182.9 cm; Wt 74.8 kg
[~2020-02-29 11:12] MED LIST changes: -ACAM333T PO; -ACET-5636 PO; +BACL10TA4 PO; +DICL20GE TP; -LEVO750T2 PO; +MENT1OIN22 TP
--- NOTE | 2020-02-29 11:15 | NUR ---
UNRULY COON AND TRANSFERRED TO BED 5 VIA [facility].
[2020-02-29 11:16] VITALS: BP 103/55
--- NOTE | 2020-02-29 11:19 | NUR ---
PT PLACED ON MONITOR AND 3 LEAD ECG. PT REFUSED TO BE CHANGED INTO GOWN.
--- NOTE | 2020-02-29 11:38 | NUR ---
74 Y/M Pt biba from outside of [facility] s/p falling out of automatic wheelchair s/p taking 2 shots of vodka. Denies LOC . PT REPORTS 01/06 PAIN "ALL OVER BODY," PT REQUESTING IV RX. STATED "SUAD ALMOST A DR. I KNOW WHAT I NEED". HX-NARCOTIC ABUSE, FX TO L FEMUR, ETOH ABUSE, R HIP STAGE 2 PRESSURE ULCER, NICOTINE DEPENDENCE, HEARING LOSS NKDA
--- NOTE | 2020-02-29 11:52 | NUR ---
DR. FAM AT BEDSIDE.
--- NOTE | 2020-02-29 12:20 | NUR ---
LAB AT BEDSIDE.
[2020-02-29 12:28] LABS: BASOPHILS % (AUTO) 0.5 % (0.0-2.0); EOSINOPHILS # (AUTO) 0.1 K/uL (0-0.4); EOSINOPHILS % (AUTO) 1.3 % (0.0-4.0); HEMATOCRIT 40.6 % (36-52); HEMOGLOBIN 13.6 g/dL (12.0-18.0); LYMPHOCYTES # (AUTO) 1.6 K/uL (2.0-11.5); LYMPHOCYTES % (AUTO) 26.2 % (20.5-51.1); MEAN CORPUSCULAR HEMOGLOBIN 33 pg (27-31); MEAN CORPUSCULAR HGB CONC 33 g/dL (33-37); MEAN CORPUSCULAR VOLUME 98.9 fL (80-94); MONOCYTES # (AUTO) 0.3 K/uL (0.8-1.0); MONOCYTES % (AUTO) 4.8 % (1.7-9.3); NEUTROPHILS % (AUTO) 67.2 % (42.2-75.2); PLATELET COUNT (AUTO) 167 K/uL (140-450); RED BLOOD CELL COUNT(AUTO) 4.11 MIL/uL (4.20-6.10); RED CELL DISTRIBUTION WIDTH 13.2 % (11.6-13.7); WHITE BLOOD COUNT (AUTO) 5.9 K/uL (4.8-10.8)
--- NOTE | 2020-02-29 12:28 | NUR ---
XR AT BEDSIDE.
[2020-02-29 13:31] LABS: ALBUMIN 3.1 g/dL (3.4-5.0); ANION GAP 16.5 (8-16); ASPARTATE AMINOTRANSFERASE 37 U/L (15-37); CARBON DIOXIDE 25.5 mmol/L (21-32); CHLORIDE 102 mmol/L (98-107); CREATININE 0.7 mg/dL (0.6-1.3); GLUCOSE 90 mg/dL (74-106); SODIUM SERUM 140 mmol/L (136-145); TOTAL BILIRUBIN 0.5 mg/dL (0.0-1.0); UREA NITROGEN, BLOOD 14 mg/dL (7-18)
[2020-02-29 13:38] LABS: PROTHROMBIN TIME 10.3 secs (10.8-13.4)
[2020-02-29] MEDS ORDERED: ACETAMINOPHEN 325 MG TAB PO ONE (14:30)
--- NOTE | 2020-02-29 15:04 | NUR ---
Patient taken to CT scan via gurney by [facility].
[2020-02-29 16:27] VITALS: BP 122/66
--- NOTE | 2020-02-29 16:29 | NUR ---
Patient discharged with v/s stable. Written and verbal after care instructions given and explained. Patient verbalized understanding. Ambulance Transport with to longterm. All questions addressed prior to discharge. Advised to follow up with PMD.
== END 2020-02-29 16:29 ==
LOC: MED 11:12
DX: S50.311A Abrasion of right elbow, initial encounter (principal); F17.200 Nicotine dependence, unspecified, uncomplicated; I10 Essential (primary) hypertension; R56.9 Unspecified convulsions; Z79.899 Other long term (current) drug therapy; W05.0XXA Fall from non-moving wheelchair, initial encounter; Y93.89 Activity, other specified; Y92.89 Other specified places as the place of occurrence of the external cause; Y99.8 Other external cause status
CPT/HCPCS: 36415; 70450; 73080; 80053; 85025; 85610; 99285; G0482

== ENCOUNTER 2020-05-23 22:36 | Emergency (ER) | payer OTHER, MEDICAID ==
[~2020-05-23] VITALS: Ht 180.3 cm; Wt 83.9 kg
[2020-05-23 22:55] VITALS: BP 125/74
--- NOTE | 2020-05-23 23:39 | NUR ---
PT TAKEN TO BED 12
--- NOTE | 2020-05-23 23:40 | NUR ---
Dr. Pérez examining patient.
--- NOTE | 2020-05-24 | NUR ---
X-Ray at bedside.
--- NOTE | 2020-05-24 00:04 | NUR ---
PT IS REFUSING TO BE ASSESSMENT, IV INSERTION, AND VENIPUNCTURE. MIQUEL MADE AWARE. Addendum: 05/24/20 at 0036 by MEDMaria Del CarmenQ PT REFUSING ASSESSMENT
[2020-05-24] MEDS ORDERED: KETOROLAC 30 MG/ML VIAL ONE (00:44)
[2020-05-24] MEDS ORDERED: KETOROLAC 30 MG/ML VIAL IM ONE (00:45)
--- NOTE | 2020-05-24 01:44 | NUR ---
PT GIVEN TURKEY SANDWICH AND CRANBERRY JUICE. PT RESTING IN BED AT THIS TIME. CALM AND COOPERATIVE
[2020-05-24 02:01] VITALS: BP 127/72
--- NOTE | 2020-05-24 02:03 | NUR ---
Patient discharged with v/s stable. Written and verbal after care instructions given and explained. Patient verbalized understanding. Wheel Chair Assisted with to long term. All questions addressed prior to discharge. Advised to follow up with PMD.
== END 2020-05-24 02:03 ==
LOC: MED 22:36
DX: F10.129 Alcohol abuse with intoxication, unspecified (principal); G89.29 Other chronic pain; M79.10 Myalgia, unspecified site; I10 Essential (primary) hypertension; Z79.899 Other long term (current) drug therapy; Y90.9 Presence of alcohol in blood, level not specified
CPT/HCPCS: 71045; 93005; 96372; 99283; J1885

== ENCOUNTER 2020-06-07 11:22 | Emergency (ER) | payer OTHER, MEDICAID ==
[~2020-06-07] VITALS: Ht 157.5 cm; Wt 63.5 kg
[2020-06-07 11:43] VITALS: BP 171/102
--- NOTE | 2020-06-07 11:46 | NUR ---
SPOKE WITH KI FROM [facility] REGARDING PATIENT. STATES PT AGREED TO REHAB BUT REHAB WILL NOT ACCEPT PATIENT FROM FACILITY HE MUST BE ADMITTED PRIOR TO REHAB. STATES SHE WILL COME TO ED WITH FURTHER INFORMATION.
--- NOTE | 2020-06-07 11:54 | NUR ---
DR DAVID AT BEDSIDE EXAMINING PATIENT
--- NOTE | 2020-06-07 12:01 | NUR ---
74 Y/O MALE [facility] FOR ADMITTANCE INTO AN ALCOHOL REHAB FACILITY. PATIENT IS INTOXICATED AT THIS TIME, NOT COOPERATIVE WITH STAFF. PATIENT IN WHEELCHAIR AT THIS TIME. RESP EVEN AND UNLABORED. VSS.
--- NOTE | 2020-06-07 12:04 | NUR ---
INFORMATION PROVIDED BY KI: [facility]: [phone] SANTIAGO
--- NOTE | 2020-06-07 12:05 | NUR ---
[facility] NARESH JACOB SN: [id number]
[2020-06-07] MEDS ORDERED: BACITRACIN OINT 500 UNITS/GM PKT TP ONE (12:10)
--- NOTE | 2020-06-07 13:04 | NUR ---
SOCIAL WORK NOTE: VELVET WAS CONTACTED BY DIRECTOR OF CASE MANAGEMENT REGARDING PATIENT'S DISCHARGE. VELVET WAS INFORMED THAT PATIENT WOULD BE TRANSFERRED TO DEPARTMENT OF [facility]AL [facility] BY KEVIN FROM [facility] [phone]. KEVIN PROVIDED CONTACT INFORMATION TO VELVET RIVAS OF [facility], , AND STATED THAT PATIENT WOULD NEED TO BE TRANSFERRED TO [facility]. KEVIN STATED THAT SHE WAS WORKING WITH SANTIAGO, [employer], AT [facility] [phone]. VELVET CONTACTED SANTIAGO WHO STATED THAT PATIENT DID NOT COMPLETE SCREENING WITH [facility]. VELVET CONTACTED KEVIN AND INFORMED HER THAT [facility] WILL NOT ACCEPT PATIENT AT THIS TIME DUE TO BED AVAILABILITY. SANTIAGO STATED THAT HE WILL CONTINUE TO WORK WITH PATIENT FOR PLACEMENT ONCE PATIENT RETURNS TO [facility]. KEVIN STATED THAT SHE WOULD COORDINATE TRANSPORTATION FOR PATIENT BACK TO [facility]. NO FURTHER NEEDS AT THIS TIME.
[2020-06-07 13:11] VITALS: BP 171/102
--- NOTE | 2020-06-07 13:12 | NUR ---
Patient discharged with v/s stable. Written and verbal after care instructions given and explained. Patient verbalized understanding. Wheel Chair Assisted with steady gait. All questions addressed prior to discharge. Advised to follow up with PMD.
== END 2020-06-07 13:12 | disposition home or self-care (01) ==
LOC: MED 11:22
DX: F10.129 Alcohol abuse with intoxication, unspecified (principal); Y90.9 Presence of alcohol in blood, level not specified
CPT/HCPCS: 99283